=== PATIENT | male | born 1930 | race African-American/Black ===

== ENCOUNTER 2018-03-05 02:16 | Observation (INO) ==
[2018-03-04 22:45] LABS: BASO# 0.02 X1000 (0.0-0.2); BASO% 0.3 % (0.0-0.8); EOS# 0.45 X1000 (0.0-0.7); EOS% 5.8 % (0.0-10.0); HEMATOCRIT 42.1 % (42.0-52.0); HEMOGLOBIN 13.3 g/dL (14.0-18.0); LYMPH# 2.37 X1000 (1.2-3.4); LYMPH% 30.7 % (20.5-51.1); MCH 28.4 PG (27-31); MCHC 31.6 g/dL (33-37); MCV 89.8 FL (81-99); MONO# 1.42 X1000 (0.11-0.59); MONO% 18.4 % (1.7-9.3); NEUT# 3.47 X1000 (1.4-6.5); NEUT% 44.8 % (42.2-75.2); PLT 156 X1000 (130-400); RBC 4.69 XMIL (4.7-6.1); RDW 18.9 % (11.5-14.5); WBC 7.73 X1000 (4.8-10.8)
[2018-03-04 23:08] LABS: AGAP 13; ALBUMIN 3.5 g/dL (3.5-5.0); ALKALINE PHOSPHATASE 60 U/L (32-122); BUN 15 mg/dL (8-22); CHLORIDE 106 mmol/L (98-107); COSMO 286; CREATININE 0.8 mg/dL (0.7-1.2); ESTIMATED GFR > 60; GLUCOSE 106 mg/dL (70-104); GOT 29 U/L (10-34); GPT 17 U/L (10-44); POTASSIUM 3.8 mmol/L (3.5-5.1); SODIUM 143 mmol/L (136-145); TCO2 24 mmol/L (25-35); TOTAL BILIRUBIN 0.45 mg/dL (0.20-1.00); TOTAL PROTEIN 6.9 g/dL (6.3-8.3)
--- NOTE | 2018-03-04 23:50 | PROVIDER DOCUMENTATION ---
HPI-General Adult - General Chief Complaint: Neck Pain Stated Complaint: STABBING PAINS RIGHT SIDE OF HEAD / FACE Time Seen by Provider: 03/04/18 20:44 Source: family Allergies/Adverse Reactions: Patient Allergies Allergy/AdvReac Type Severity Reaction Status Date / Time No Known Allergies Allergy Verified 03/04/18 22:00 Home Medications: Home Medication List Medication Instructions Recorded Confirmed Last Taken Type Potassium Chloride 10 meq PO DAILY 05/03/17 03/04/18 03/04/18 History Albuterol 2.5MG/Ipratrop 0.5MG 3 ml INH RTQ6H #120 neb 05/06/17 03/04/18 Rx [Duoneb (A & A)] Metoprolol [Lopressor] 50 mg PO BID 05/20/17 03/04/18 03/04/18 History Tiotropium Ramer Inhaler 1 puff INH RTDAILY 06/02/17 03/04/18 03/04/18 History [Spiriva] Apixaban [Eliquis] 2.5 mg PO BID 10 Days #20 tab NS 12/02/17 03/04/18 03/04/18 Rx Furosemide [Lasix] 40 mg PO DAILY #30 tab 12/11/17 03/04/18 03/04/18 Rx Atorvastatin Calcium [Lipitor] 20 mg PO DAILY 01/10/18 03/04/18 03/04/18 History Albuterol Sulfate Inhaler 2 puff INH Q6H PRN #1 inhaler 01/17/18 03/04/18 Unknown Rx [Ventolin Hfa] Amlodipine Besylate 10 mg PO DAILY 01/28/18 03/04/18 03/04/18 History Losartan Potassium 50 mg PO DAILY 01/28/18 03/04/18 03/04/18 History Digoxin [Lanoxin] 125 microgm PO DAILY #90 tab 01/31/18 03/04/18 03/04/18 Rx Ranolazine E.r. [Ranexa] 500 mg PO BID #60 tab 01/31/18 03/04/18 03/04/18 Rx Spironolactone [Aldactone] 25 mg PO DAILY #90 tab 01/31/18 03/04/18 03/04/18 Rx Tramadol/APAP [Ultracet 1 ea PO Q8H PRN PRN #30 tab 01/31/18 03/04/18 03/04/18 Rx 37.5MG/325Mg] - History of Present Illness -Gen Adult Nature of Presenting Problems: HPI: Pt reprost to ED with severe headache, weakness, SOB/Cough/wheezing and Right shoulder pain. He has an extensive PMH and was recently discharged from hospital for COPD exacerbation. Pt is having cough, and SOB, wheezing and has productive cough. He states he has wekaness, has difficulty walking, cannot get out of bed. He also complains of headache Location of Pain/Injury: reports: head Pain Radiation: reports: shoulder(s) Quality of Pain: reports: aching Severity: reports: moderate Onset/Duration: reports: other (3 weeks) Timing: reports: still present Context/Activities at Onset: reports: light activity Modifying Factors: improves with: nothing Associated Symptoms: reports: back/neck pain, cough, fatigue, headaches, loss of appetite, malaise, shortness of breath, weakness Similar Symptoms Previously?: Yes Recently seen or treated by another doctor?: Yes Review of Systems - Adult - REVIEW OF SYSTEMS - ADULT Constitutional: reports: no symptoms reported Eyes: reports: no symptoms reported Ears, Nose, Mouth & Throat: reports: no symptoms reported Cardiovascular: reports: no symptoms reported Respiratory: reports: chronic cough, cough, dyspnea on exertion, shortness of breath, wheezing Gastrointestinal: reports: no symptoms reported Genitourinary: reports: no symptoms reported Musculoskeletal: reports: see HPI Integumentary: reports: no symptoms reported Neurological: reports: see HPI Psychiatric: reports: no symptoms reported Endocrine: reports: no symptoms reported Hematologic/Lymphatic: reports: no symptoms reported Allergic/Immunologic: reports: no symptoms reported All Other Systems: Reviewed and Negative Past History - Adult - PAST MEDICAL HISTORY-ADULT Review of Records: reports: Old Records Reviewed, Nursing Assessment Review, Medications Reviewed, Social history reviewed & non-contributory. Major Childhood Illnesses: reports: denies history Cardiovascular: reports: CHF, HTN, hyperlipidemia Respiratory: reports: asthma, COPD, sleep apnea Gastrointestinal: reports: GERD Obstetrical/Gynecological: reports: denies history Genitourinary: reports: denies history Musculoskeletal: reports: other (Mysthenia Gravis) Neurological: reports: denies history Endocrine/Immune: reports: denies history Other Conditions: reports: denies history - PRIOR SURGERIES/PROCEDURES Surgical/Procedure History: reports: cholecystectomy, hernia repair, orthopedic (extremity), joint replacement (total knee) - IMMUNIZATION STATUS Childhood Immunizations: See Nurse Assessment Flu Vaccine: See Nurse Assessment - FAMILY HISTORY Family History: reviewed, not pertinent - SOCIAL HISTORY Smoking: denies Substance Use: none/never Alcohol Use Frequency: never Living Situation: family Physical Exam-General - PHYSICAL EXAM-ADULT Initial Vital Signs Reviewed: Yes - CONSTITUTIONAL General Appearance: mild distress - EYES Eyes: pink conjunctivae - HEAD, EARS, NOSE, MOUTH & THROAT HENMT: moist mucous membranes - NECK Neck: tender lateral - RESPIRATORY Respiratory: decreased breath sounds, rhonchi, wheezing. negative: chest non- tender, lungs clear, normal breath sounds - CARDIOVASCULAR Cardiovascular: normal peripheral pulses, bradycardia. negative: no gallop, no JVD, no murmur - GASTROINTESTINAL (ABDOMEN) Abdominal Exam: normal bowel sounds, non tender, soft, no organomegaly. negative: guarding, rigid, rebound, tenderness - MUSCULOSKELETAL Back Exam: no vertebral tenderness Extremity: non-tender, normal inspection. negative: normal range of motion, normal gait - SKIN Integumentary: normal color, normal turgor, warm/dry - NEUROLOGIC Neurologic: grossly normal - PSYCHIATRIC Psych/Mental Status: negative: normal mood/affect Progress - PLAN OF CARE/RESULTS Progress/Plan/Lab Results: Vital Signs - 8 hr 03/04/18 17:51 03/04/18 20:04 03/04/18 20:19 Temperature 98.2 F Pulse Rate 64 74 Respiratory Rate 18 Blood Pressure 137/76 136/80 125/75 O2 Sat by Pulse Oximetry 97 95 95 03/04/18 20:35 03/04/18 20:50 03/04/18 21:04 Temperature Pulse Rate 65 64 69 Respiratory Rate Blood Pressure 138/62 99/59 134/69 O2 Sat by Pulse Oximetry 94 L 93 L 93 L 03/04/18 21:05 03/04/18 21:30 03/04/18 22:00 Temperature Pulse Rate 71 55 L Respiratory Rate 16 24 Blood Pressure O2 Sat by Pulse Oximetry 92 L 94 L 94 L 03/04/18 22:30 Temperature Pulse Rate 73 Respiratory Rate 33 H Blood Pressure O2 Sat by Pulse Oximetry 93 L Laboratory Results - last 24 hr 03/04/18 03/04/18 21:20 21:20 WBC 7.73 RBC 4.69 L Hgb 13.3 L Hct 42.1 MCV 89.8 MCH 28.4 MCHC 31.6 L RDW Std Deviation 18.9 H Plt Count 156 MPV 11.0 H Neut % (Auto) 44.8 Lymph % (Auto) 30.7 [place] % (Auto) 18.4 H Eos % (Auto) 5.8 Baso % (Auto) 0.3 Neut # (Auto) 3.47 Lymph # (Auto) 2.37 [place] # (Auto) 1.42 H Eos # (Auto) 0.45 Baso # (Auto) 0.02 Sodium 143 Potassium 3.8 Chloride 106 Carbon Dioxide 24 L Anion Gap 13 BUN 15 Creatinine 0.8 Estimated GFR/1.73 m2 > 60 BUN/Creatinine Ratio 19 Glucose 106 H Calculated Osmolality 286 Calcium 10.0 Total Bilirubin 0.45 AST 29 ALT 17 Alkaline Phosphatase 60 Total Protein 6.9 Albumin 3.5 Globulin 3.4 Albumin/Globulin Ratio 1.0 Orders Category Date Time Status Saline Loc NOW Care 03/04/18 22:25 Active CERVICAL SPINE COMPLETE [RAD] Stat Exams 03/04/18 22:37 Taken CHEST-2 VIEWS [RAD] Stat Exams 03/04/18 22:37 Taken CBC WITH ELECTRONIC DIFF [HEME] Stat Lab 03/04/18 21:20 Completed COMPREHENSIVE METABOLIC PANEL [CHEM] Stat Lab 03/04/18 21:20 Completed URINALYSIS W/POSS RFLX CULT [URINALYSIS] Stat Lab 03/04/18 22:25 Uncollected 0.9% Sodium Chloride Inj [Ns] 1,000 ml Med 03/04/18 22:25 Discontinued IV 999 mls/hr Ketorolac [Toradol] Med 03/04/18 22:25 Discontinued 30 mg IV NOW ONE Result Diagrams: 03/04/18 21:20 03/04/18 21:20 - XRAY 1 XRAY Study: Chest Impression: Abnormal (possible pulmonary inflitrates) Departure - Departure Date of Disposition Decision: 03/05/18 Time of Disposition Decision: 00:31 DIAGNOSIS: Generalized weakness Disposition: ADMITTED INPATIENT 09 Certified Medical Emergency: Emergent Condition: Fair Additional Freetext Instructions: ED Follow Up Instructions: You have been treated by a care provider in the Emergency Department. These instructions are being provided to you so you can have an understanding of how to care for yourself upon discharge. Upon discharge from the Emergency Department, you are responsible for making arrangements for follow-up care by a physician of your choice. Take all prescribed medications as directed. Return to the Emergency Department immediately for any new or worsening symptoms. You may call the Physician Referral phone number at [phone] to obtain a list of Physicians who are taking new patients. Referrals and Follow-Ups: Chad Oliver [Primary Care Provider] - - Critical Care Note This patient required my direct & personal management of CC.: No Attestation - Physician/ HAYDEE Attestation Patient care was provided by Advanced Practice Provider:: No The physician spent face to face time with patient:: Yes Advanced Practice Provider documentation review:: Supervising physician onsite and consulted in the evaluation and care of this patient. The physician did have a face to face encounter with the patient.
[~2018-03-05 02:16] MED LIST: NICODERM PATCH TD ONE; NS 1,000 ML IV ONE; TORADOL IV ONE; ULTRAM PO ONE
[2018-03-05 02:55] LABS: MAGNESIUM 1.8 mg/dL (1.5-2.7)
[2018-03-05 03:03] LABS: INR 1.03; PROTIME 14.3 Seconds (11.0-16.0)
[2018-03-05 03:21] LABS: BILIRUBIN URINE NEGATIVE (NEGATIVE); BLOOD URINE NEGATIVE (NEGATIVE); COLOR YELLOW; GLUCOSE URINE NEGATIVE (NEGATIVE); KETONE URINE NEGATIVE (NEGATIVE); LEUKOCYTES URINE NEGATIVE (NEGATIVE); NITRITE URINE NEGATIVE (NEGATIVE); PH URINE 6.5; PROTEIN URINE NEGATIVE (NEGATIVE); SP GRAVITY URINE 1.022; TURBIDITY URINE CLEAR (CLEAR); UR EPITHELIAL CELLS <10 /HPF (<10); URINE BACTERIA NEGATIVE /HPF; URINE RBC <10 /HPF (<10); URINE SOURCE CLEAN CATCH; URINE WBC <10 /HPF (<10); UROBILINOGEN URINE 2 mg/dL (NORMAL)
[2018-03-05 03:23] LABS: CK INDEX 1.3 (0.0-2.5); CK-MB 4.65 ng/mL (0.0-5.0)
--- NOTE | 2018-03-05 07:18 | Diag Imaging Result Doc PS360 ---
EXAM: CT HEAD W/O CONTRAST INDICATION: headache TECHNIQUE: This exam was performed using automated exposure control, adjustment of mA or kV according to patient size, and/or use of iterative reconstruction technique. COMPARISON: 01/10/2018 FINDINGS: There is stable mild brain atrophy and stable patchy low attenuation in the periventricular and subcortical white matter suggesting mild to moderate microangiopathy. There is no definite acute infarct given the limited sensitivity of CT versus MRI. There is no discrete intracranial mass, mass effect, or intracranial hemorrhage. The surrounding soft tissues and bony structures are essentially unremarkable. IMPRESSION: Stable chronic changes. No definite acute intracranial pathology. Electronically signed by Artem Taylor 03/05/2018 7:16 AM
--- NOTE | 2018-03-05 07:26 | Diag Imaging Result Doc PS360 ---
EXAM: CHEST-2 VIEWS 03/04/2018 HISTORY: headache TECHNIQUE: PA and lateral chest COMMENT: There is interstitial opacity particularly in the left costophrenic angle. The heart size and pulmonary vascularity appear to be within normal limits. IMPRESSION: Mild interstitial pulmonary edema. Electronically signed by Torey Raymond 03/05/2018 7:24 AM
--- NOTE | 2018-03-05 07:39 | Diag Imaging Result Doc PS360 ---
EXAM: CERVICAL SPINE COMPLETE 03/04/2018 HISTORY: neck pain TECHNIQUE: Cervical spine with obliques six views COMMENT: There is disc space narrowing with anterior osteophyte formation at the C3-4, C4-5, and C5-C6 levels. There is posterior osteophyte formation and ankylosis at the C6-7 level. No prevertebral soft tissue swelling is present. There is some mild osteophytic encroachment on the intervertebral foramina at C4-5 and C5-6 on the right. Compared to the previous study of 10/11/2017 there has been no significant change. IMPRESSION: Degenerative disc changes as described. Electronically signed by Torey Raymond 03/05/2018 7:37 AM
[2018-03-05] MEDS ORDERED: ZOFRAN IV PRN (07:50)
--- NOTE | 2018-03-05 08:21 | Diag Imaging Result Doc PS360 ---
EXAM: CT NECK W/CONTRAST INDICATION: Right Head/Neck Pain TECHNIQUE: This exam was performed using automated exposure control, adjustment of mA or kV according to patient size, and/or use of iterative reconstruction technique. COMPARISON: Unenhanced cervical spine CT dated 05/03/2017. No dedicated soft tissue neck CT is available for comparison. FINDINGS: The salivary glands and thyroid are grossly unremarkable. There is no evidence of significant cervical lymphadenopathy. The extranodal lymphoid tissue is grossly unremarkable. There is some asymmetry at the level of the valleculae with the left vallecula larger than the right. However, no underlying mass is identified. The aerodigestive tract is grossly unremarkable, otherwise. There is no evidence of soft tissue abscess. There is pulmonary emphysema. There is a small nodular density in the right upper lobe that can also be seen on a prior dedicated chest CT dated 01/29/2018. IMPRESSION: 1.No evidence of abscess or other definite acute pathology. 2.Other external/nonacute findings detailed above. Electronically signed by Artem Taylor 03/05/2018 8:19 AM
[2018-03-05 08:56] LABS: BASO# 0.03 X1000 (0.0-0.2); BASO% 0.5 % (0.0-0.8); EOS# 0.35 X1000 (0.0-0.7); EOS% 5.4 % (0.0-10.0); HEMATOCRIT 42.6 % (42.0-52.0); HEMOGLOBIN 13.3 g/dL (14.0-18.0); IMM GRAN# 0.03 X1000 (0.0-0.04); IMM GRAN% 0.5 % (0.0-0.5); LYMPH# 2.31 X1000 (1.2-3.4); LYMPH% 35.4 % (20.5-51.1); MCH 28.1 PG (27-31); MCHC 31.2 g/dL (33-37); MCV 90.1 FL (81-99); MONO# 0.78 X1000 (0.11-0.59); MONO% 11.9 % (1.7-9.3); MPV 10.1 FL (7.4-10.4); NEUT# 3.03 X1000 (1.4-6.5); NEUT% 46.3 % (42.2-75.2); PLT 145 X1000 (130-400); RBC 4.73 XMIL (4.7-6.1); RDW 18.8 % (11.5-14.5); WBC 6.53 X1000 (4.8-10.8)
[2018-03-05] MEDS ORDERED: RANEXA PO SCH (09:00)
--- NOTE | 2018-03-05 09:01 | EKG Report ---
Test Performed on : 03/05/2018 08:35:10 AM Test Reason : ABNORNAL HEART RHYTHEM Blood Pressure : / mmHG Vent. Rate : 063 BPM Atrial Rate : 063 BPM P-R Int : 178 ms QRS Dur : 112 ms QT Int : 388 ms P-R-T Axes : 050 -05 -85 degrees QTc Int : 397 ms Normal sinus rhythm. Septal infarct (cited on or before 17-NOV-2017) ST & T wave abnormality, consider inferior ischemia Abnormal ECG When compared with ECG of 05-MAR-2018 08:34, (Unconfirmed) premature ventricular complexes. are no longer present premature atrial complexes. are no longer present Nonspecific T wave abnormality no longer evident in Anterior leads Confirmed by Vijay BETTENCOURT, Chris Martinez ([id number]) on 03/05/2018 9:45:22 AM
--- NOTE | 2018-03-05 09:06 | EKG Report ---
Test Performed on : 03/04/2018 9:49:30 PM Test Reason : NO EKG ORDER FOR MUSE Blood Pressure : / mmHG Vent. Rate : 055 BPM Atrial Rate : 055 BPM P-R Int : 176 ms QRS Dur : 114 ms QT Int : 426 ms P-R-T Axes : 036 -36 -85 degrees QTc Int : 407 ms Sinus bradycardia. with premature supraventricular complexes. and with occasional premature ventricul ar complexes. Left axis deviation Septal infarct (cited on or before 17-NOV-2017) ST & T wave abnormality, consider inferior ischemia ST & T wave abnormality, consider anterolateral ischemia Abnormal ECG When compared with ECG of 28-JAN-2018 18:49, Significant changes have occurred Unconfirmed Result
[2018-03-05 09:10] LABS: AGAP 10; BUN 10 mg/dL (8-22); CALCIUM 8.7 mg/dL (8.8-10.2); CHLORIDE 104 mmol/L (98-107); COSMO 276; CREATININE 0.7 mg/dL (0.7-1.2); ESTIMATED GFR > 60; GLUCOSE 115 mg/dL (70-104); MAGNESIUM 1.7 mg/dL (1.5-2.7); POTASSIUM 4.1 mmol/L (3.5-5.1); SODIUM 138 mmol/L (136-145); TCO2 24 mmol/L (25-35)
[2018-03-05 09:37] LABS: CK INDEX 1.6 (0.0-2.5); CK-MB 3.92 ng/mL (0.0-5.0)
[2018-03-05] MEDS: DUONEB (A & A) INH SCH ×3 (10:19→18:59)
[2018-03-05] MEDS: SPIRIVA INH SCH (10:19)
[2018-03-05] MEDS: ULTRACET 37.5MG/325MG PO PRN (11:36)
[2018-03-05] MEDS: LIPITOR PO SCH (11:42)
[2018-03-05] MEDS: LASIX PO SCH (11:42)
[2018-03-05] MEDS: ELIQUIS PO SCH ×2 (11:43→21:30)
[2018-03-05] MEDS: NORVASC PO SCH (11:43)
[2018-03-05] MEDS: COZAAR PO SCH (11:43)
[2018-03-05] MEDS: ALDACTONE PO SCH (11:43)
[2018-03-05] MEDS: ROCEPHIN 1 GM in NS 50 ML IV SCH (12:00)
[2018-03-05] MEDS ORDERED: LASIX IV ONE (13:32)
[2018-03-05] MEDS: LOPRESSOR PO SCH ×2 (16:59→21:30)
--- NOTE | 2018-03-05 17:31 | CONSULTATION ---
DATE OF CONSULTATION: 03/05/2018 IMPRESSION: 1. Episode of polymorphic ventricular tachycardia observed while patient on telemetry. I suspect this may very well have been precipitated by congestive heart failure and missed dosing of beta vin for 24 hours in patient with severe coronary disease and ischemic cardiomyopathy. 2. Severe coronary atherosclerosis. Last cardiac catheterization study in 2014 indicated 100% occlusion of left circumflex coronary artery, diffuse irregularities and right coronary, and diffuse irregularities in left anterior descending coronary. Medical management was recommended. At that time left ventricular ejection fraction was 55 to 60 percent. 3. Ischemic cardiomyopathy. Echocardiography most recently, has indicated left ejection fraction of 30%. 4. Chief complaint of right neck and right side of his head discomfort which is aggravated by turning his head. 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 5. Chronic obstructive pulmonary disease. Reportedly significant. 6. Hyperlipidemia. 7. Previous episode of atrial fibrillation./paroxysmal atrial fibrillation. 8. Hypertension. RECOMMENDATIONS: 1. Diurese with intravenous Lasix. 2. Resume metoprolol. 3. Patient has chosen to be do not resuscitate in the past. The implications of his ischemic cardiomyopathy and ventricular arrhythmias were discussed with the patient's family. He is given it further consideration but has not changed his mind from being a do not resuscitate. 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 His pain is aggravated by turning of his head to the right. This is a somewhat chronic symptom. He has not had any chest pain. 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 He has significant problems and having pain in his neck when he turns his head to the right. Apparently had seen one of the neurosurgeons in [place] and was turned down for surgical repair presumably because of his cardiac issues. He has had some paroxysmal atrial fibrillation in the past as well as some episodes of nonsustained ventricular tachycardia. He has been evaluated by the electrophysiology service and has not desired resuscitative measures in the event of cardiac arrest and shows to be a DNR. PAST MEDICAL HISTORY: 1. Severe coronary disease. 2. Ischemic cardiomyopathy. 3. COPD, significant. 4. Hypertension. 5. Hyperlipidemia. 6. 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 7. Paroxysmal atrial fibrillation. 8. Nonsustained ventricular arrhythmias in the past. PAST SURGICAL HISTORY: Unspecified back surgery, rotator cuff surgery, and release of ulnar surgery. ALLERGIES: No known drug allergies. MEDICATIONS PRIOR TO ADMISSION: As listed. It is noteworthy that his last dose metoprolol was yesterday morning and he has yet to received another dose. He takes metoprolol 50 mg p.o. b.i.d. in addition to his other medications. SOCIAL HISTORY: He has history of previous smoking, but no longer smokes. He continues to work despite of his age and medical issues. FAMILY HISTORY: Negative for premature coronary disease. REVIEW OF SYSTEMS: Pulmonary: Noteworthy for chronic tendency for orthopnea as well as some exertional shortness of breath. Gastrointestinal: Negative. Constitutional: Negative. Remainder of review of systems negative/noncontributory with 14 total systems reviewed. PHYSICAL EXAMINATION: General: This is a elderly male in no distress. Vital signs: Blood pressure 145/72, heart rate 75, oxygen saturation 99% on nasal cannula oxygen. HEENT: Extraocular movements intact. Mucous membranes moist. Neck: Supple. Jugular venous distention cannot be discerned. Chest: Clear to auscultation bilaterally. Cardiac: Reveals a regular rate and rhythm without appreciable murmur or gallop. Abdomen: Soft, nontender. Bowel sounds are normal. Extremities: Without edema. Extensive wasting evident in the musculature of both hands. PERTINENT DATA: Twelve lead EKG demonstrates sinus rhythm. Cannot rule out septal infarct of undetermined age and ST and T-wave abnormality, consider inferior ischemia. LABORATORY DATA: Includes a white blood cell count of 6.5,3 hematocrit 42.6, hemoglobin 13.3, platelet count 145,000. Sodium 138, potassium 4.1, chloride 104, carbon dioxide 24, BUN 10, creatinine 0.7, glucose 115, initial troponin less than 0.01. Followup troponin less 0.01. Initial CPK 370, followup CPK 242. Pro B natriuretic peptide level 2568. Chest x-ray on admission reviewed and suggests mild interstitial pulmonary edema. cc: MD René Solorzano MD
[2018-03-05] MEDS: ROBAXIN PO SCH (21:30)
[2018-03-05] MEDS: NORCO-7.5 PO PRN (23:20)
[2018-03-06] MEDS: DUONEB (A & A) INH SCH ×6 (01:56→21:10)
[2018-03-06 05:25] LABS: BASO# 0.03 X1000 (0.0-0.2); BASO% 0.4 % (0.0-0.8); EOS# 0.56 X1000 (0.0-0.7); EOS% 7.4 % (0.0-10.0); HEMATOCRIT 44.7 % (42.0-52.0); HEMOGLOBIN 14.2 g/dL (14.0-18.0); IMM GRAN# 0.05 X1000 (0.0-0.04); IMM GRAN% 0.7 % (0.0-0.5); LYMPH# 1.89 X1000 (1.2-3.4); LYMPH% 24.8 % (20.5-51.1); MCHC 31.8 g/dL (33-37); MCV 88.2 FL (81-99); MONO# 1.24 X1000 (0.11-0.59); MONO% 16.3 % (1.7-9.3); MPV 9.8 FL (7.4-10.4); NEUT# 3.84 X1000 (1.4-6.5); NEUT% 50.4 % (42.2-75.2); PLT 155 X1000 (130-400); RBC 5.07 XMIL (4.7-6.1); RDW 18.7 % (11.5-14.5); WBC 7.61 X1000 (4.8-10.8)
[2018-03-06 06:08] LABS: BUN 13 mg/dL (8-22); ESTIMATED GFR > 60; GLUCOSE 97 mg/dL (70-104); MAGNESIUM 1.6 mg/dL (1.5-2.7)
[2018-03-06 06:26] LABS: AGAP 14; CALCIUM 8.9 mg/dL (8.8-10.2); CHLORIDE 99 mmol/L (98-107); COSMO 272; POTASSIUM 3.9 mmol/L (3.5-5.1); SODIUM 136 mmol/L (136-145); TCO2 23 mmol/L (25-35)
--- NOTE | 2018-03-06 07:18 | HISTORY AND PHYSICAL ---
PRIMARY CARE PROVIDER: Dr. Ankit Orona. CHIEF COMPLAINT: Neck pain. HISTORY OF PRESENT ILLNESS: Mr. Patel is an 87-year-old, -Nepalese male with a past medical history most notable for congestive heart failure, COPD, hypertension, hyperlipidemia and atrial fibrillation on anticoagulation with Eliquis. Mr. Patel states that he has been having a right-sided head, face, neck and right shoulder pain. He reports this pain is sharp in nature and it is approximately 10/10. He states it starts at the top of his head and radiates downward to his right shoulder. The patient states this has been ongoing for several weeks. He does report that he has difficulty turning his head to the right and has to essentially turn his whole upper body to look to the right. 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 After speaking with the patient, he does state that he has been going to see a physician in [place] who has possibly doing steroid injections in his neck/jaw area. He stated he had one of these possibly [id number]. Though at this time I am unsure of what imaging studies they have done to evaluate his pain that he is reporting. He also reports that he has had an occasional productive cough with some white thick sputum though the patient states that this cough has been present for quite some time and has not worsened. He does report occasional shortness of breath, though at this time he is denying shortness of breath or chest pain. He does report he has felt a little more weak than normal and he has had a decreased appetite. He denies any abdominal pain, nausea, vomiting or diarrhea. He denies any dysuria or urinary frequency. He denies any swelling in extremities. He also denies any fevers, body aches or chills. Upon evaluation in the ER, he was noted to be complaining of symptoms as above. They did perform studies of head CT negative for any acute intracranial abnormalities. Chest x-ray did show some mild interstitial pulmonary edema. EKG did show a sinus bradycardia with premature supraventricular complexes and occasional premature ventral complexes of the left axis deviation. Looking back, the patient has not previously had any problems with bradycardia though he does have a history of paroxysmal atrial fibrillation. In the ER, as well as during my examination, the patient was ranging in the 50s to 60s on his heart rate. Though his blood pressure is within normal limits with readings of 152/82. Oxygen saturation is 96% on room air. We did perform further studies of a neck CT with contrast for further evaluation of his reported pain symptoms. There was no evidence of abscess or other definite acute pathologies. At this time, the patient will be admitted for further treatment and evaluation of his weakness and right-sided head, face, neck and shoulder pain. REVIEW OF SYSTEMS: A 14 point review of systems was conducted with the patient and all were negative except for pertinent positives mentioned above in HPI. PAST MEDICAL HISTORY: 1. Congestive heart failure with last known ejection fraction of 50%. 2. COPD. 3. Gastroesophageal reflux disease. 4. Hyperlipidemia. 5. Hypertension. 6. Paroxysmal atrial fibrillation on anticoagulation with Eliquis. 7. There was a questionable history of myasthenia gravis that was mentioned in previous history and physical in November 2017. PAST SURGICAL HISTORY: 1. Right shoulder rotator cuff repair. 2. Left knee arthroplasty. 3. Cholecystectomy. 4. Left elbow surgery. 5. Back surgery. SOCIAL HISTORY: The patient is a former smoker. He quit smoking [id number]. At this time, he states he has not started smoking again. He has no known alcohol or illicit drug use history. 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 FAMILY HISTORY: Positive for his mother and father both being . His mother lived to age 75, though the patient was not sure either his mother or father's cause of . ALLERGIES: The patient has no known allergies. HOME MEDICATIONS: 1. DuoNeb treatment 3 mm inhaled q.6 hours. 2. Ventolin HFA inhaler 2 puffs inhaled q.6 hours p.r.n. 3. Amlodipine 10 mg p.o. daily. 4. Eliquis 2.5 mg p.o. b.i.d. 5. Lipitor 20 mg p.o. daily. 6. Digoxin 125 mcg p.o. daily. 7. Lasix 40 mg p.o. daily. 8. Losartan potassium 50 mg p.o. daily. 9. Lopressor 50 mg p.o. b.i.d. 10.Potassium chloride 10 mEq p.o. daily. 11.Ranexa 500 mg p.o. daily. 12.Aldactone 25 mg p.o. daily. 13.Spiriva one puff inhaled daily. 14.Ultracet 37.5 mg/325 mg tablet on p.o. q.8 hours p.r.n. pain. DIAGNOSTIC DATA/LABORATORY RESULTS: 1. White blood cell count 7730, hemoglobin 13.3, hematocrit 42.1, platelet count 156,000. 2. PT 14.3, INR 1.03, PTT is 29.7. 3. Sodium 143, potassium 3.8, chloride 106, serum bicarb 24, BUN 15, creatinine 0.8 with a GFR greater than 60, glucose 106, calcium 10, magnesium 1.8. 4. Liver function tests are within normal limits. 5. CK 370, CK index 1.3, CK MB is 4.65. Troponin less than 0.01. 6. Digoxin level is 1.1. 7. Urinalysis obtained via clean catch was negative for protein, glucose, ketones, blood, nitrites, leukocytosis, white blood cells or bacteria. 8. Chest x-ray did show some mild interstitial pulmonary edema. 9. CT of the head noncontrast showed stable chronic changes, though no definite acute intracranial pathology. 10.CT of neck without contrast showed no evidence of abscess or other definite acute pathology. There was also some pulmonary emphysema noted. There was also a small nodular density at the right upper lobe that can also be seen on prior dedicated chest CT from January 2018. PHYSICAL EXAMINATION: VITAL SIGNS: Temperature 97.8 degrees Fahrenheit, heart rate 60, respirations 22, blood pressure 152/82. Oxygen saturation is 96% on room air. GENERAL: Mr. Patel is a pleasant 87-year-old, -N[place]alese male, who was resting on the inpatient bed. He was in no acute distress. He was awake, alert, and able to answers questions appropriately. The patient had noted to be earlier in the ER alert and oriented to person, place and time - though was documented to be lethargic though I have not witnessed this upon my examination. HEENT: Head: Normocephalic and atraumatic. Eyes: Pupils are equal, round and reactive to light, 3 mm bilaterally and brisk. ENT: Oral mucosa is moist. Oropharynx is clear. NECK: Supple. Trachea is midline. There is no overt JVD noted. CARDIOVASCULAR: The patient has S1, S2 present. There were no murmur, gallop, or rub appreciated. PULMONARY: The patient has symmetrical chest expansion bilaterally. Lung sounds are clear to auscultation in bilateral full spring. ABDOMEN: Soft, nontender, nondistended. Bowel sounds are present in all four quadrants were normoactive. EXTREMITIES: No cyanosis, clubbing or edema noted. Pulse, motor and sensory were intact in all extremities. Pedal pulses and radial pulses were 2+ bilaterally. INTEGUMENTARY: The patient's skin color is normal for his race. Dry and intact. MUSCULOSKELETAL: Patient able to move all extremities. He does appear to have some decrease in range of motion when turning his head and neck to the right. He also does have some tenderness at the angle of the jaw on the right, though there was no palpable nodules, hematoma or masses upon my examination. NEUROLOGIC: The patient is alert and oriented to person, place, time and situation. There did not appear to be any focal neurological deficits noted. The patient does appear to have good muscle strength bilaterally, though he is reporting that he is weaker than his usual. IMPRESSION AND PLAN: 1. Weakness. The patient does have good equal hand grasp bilaterally, as well as fairly good muscle strength - though he does report that he has been having some weakness that is worsened from his baseline. For further evaluation of this we have place a physical therapy evaluation. We will continue to monitor closely. We will go ahead and continue with a series of cardiac enzymes. We will repeat CBC and BMP and magnesium in the morning. 2. Also, the patient was noted to be slightly bradycardiac in the ER with a heart rate that was in the 50s and low 60s. He does take medications of metoprolol and digoxin. I am no sure if he is maybe having some periods of bradycardia and this may be causing him to feel more weak than normal. Given this we will place him on continuous cardiac telemetry. We will continue to monitor this closely, though I will hold his digoxin and metoprolol this morning. We will continue to follow and monitor his heart rate. 3. History of congestive heart failure. Though the patient was noted to have some mild interstitial pulmonary edema on his chest x-ray, his lung sounds were clear to auscultation bilaterally. He has no JVD noted. He has no edema in his extremities. He does not appear to be in overload at this time. Given this we will go ahead and continue his regularly prescribed medications for this. As well, he does receive Lasix 40 mg p.o. daily. 4. History of paroxysmal atrial fibrillation. As previously mentioned in #1, the patient was having some periods of some mild bradycardia in the 50s and low 60s, though he is reporting new onset of some weakness. I am not sure if this is contributing to this. Given this we are going to place him on continuous cardiac telemetry. As previously mentioned, watch his heart rate. We will hold his digoxin and metoprolol for this morning to see how his heart rate does. 5. Right head, face, neck and shoulder pain. Though his CT of head and CT of the neck did not show any acute findings to possibly explain his pain that he is reporting, he did state that he had previously seen a physician in [facility] who had possibly performed what sounds like may have been some steroid injections in his neck. He stated that he was supposed to follow up with them but does not have an appointment at this time. We are also not sure of any imaging studies that may have been done. The patient's primary care doctor is Dr. Orona. He may have this documentation as well as imaging studies available for his viewing. We will defer this to him given that he will be taking back over his care this morning. We have placed orders for Ultracet for pain if needed. 6. Hypertension. We will continue his other prescribed antihypertensives. 7. Hyperlipidemia. We will continue his statin. 8. Chronic obstructive pulmonary disease. We will continue his earlier prescribed DuoNeb treatments and his Spiriva. 9. Deep venous thrombosis prophylaxis. He will be provided with the patient's Eliquis which he takes for anticoagulation related to his paroxysmal atrial fibrillation. The patient has been placed on the medical floor with telemetry. He will have vital signs q.4 hours. We will do strict intake and output. Incentive spirometry. Her will be on a Heart Healthy diet. We will repeat his labs later this morning, and we will do a series of cardiac enzymes. Further orders and recommendations pending hospital course, diagnostic studies, and physician evaluation. Dictated by CARRILLO Ewing for Kirk Smith MD cc: MD Kirk Negro MD
[2018-03-06] MEDS: NORVASC PO SCH (07:59)
[2018-03-06] MEDS: ROBAXIN PO SCH ×2 (07:59→20:00)
[2018-03-06] MEDS: LOPRESSOR PO SCH ×2 (07:59→20:00)
[2018-03-06] MEDS: ALDACTONE PO SCH (07:59)
[2018-03-06] MEDS: LASIX PO SCH (07:59)
[2018-03-06] MEDS: LIPITOR PO SCH (07:59)
[2018-03-06] MEDS: COZAAR PO SCH (07:59)
[2018-03-06] MEDS: ELIQUIS PO SCH ×2 (07:59→20:00)
[2018-03-06] MEDS: SPIRIVA INH SCH (10:33)
[2018-03-06] MEDS: ROCEPHIN 1 GM in NS 50 ML IV SCH (11:35)
--- NOTE | 2018-03-06 12:12 | PROGRESS NOTE ---
DATE: 03/06/2018 SUBJECTIVE: Patient continues without shortness of breath on room air. There has been no chest pain. He relates that his neck pain is improving. OBJECTIVE: Vital Signs: Blood pressure 107/69, heart rate 70 and regular with ECG monitor showing consistent sinus rhythm. Oxygen saturation 94% on room air to 97% on room air. Neck: There is no significant jugular venous distention. Chest: Clear to auscultation. Cardiac Examination: Reveals a regular rate and rhythm without appreciable murmur or gallop. Extremities: Without edema. Laboratory Data: Includes white blood cell count 7.61, hematocrit 44.7, hemoglobin 14.2, platelet count 155,000. Sodium 136, potassium 3.9, chloride 99, carbon dioxide 23, BUN 13, creatinine 1.0, glucose 97. Troponin 0.013, CPK 166. Digoxin 1.1 on March 04. IMPRESSION: 1. Transient ventricular arrhythmia in the setting of exacerbation of congestive heart failure and interruption of metoprolol. Patient appears to have improved clinically with diuresis and resumption of beta-vin, metoprolol. 2. Severe coronary atherosclerosis. 3. Ischemic cardiomyopathy with most recent left ventricular ejection fraction of 30%. 4. Chronic neck and right-sided head discomfort aggravated by turning of the head. 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 5. Severe chronic obstructive pulmonary disease. 6. Hyperlipidemia. 7. Previous episode of atrial fibrillation/paroxysmal atrial fibrillation. 8. Hypertension. RECOMMENDATIONS: 1. Continue Lasix orally. 2. Continue metoprolol. 3. Would not resume digoxin and would not resume Ranexa. 4. Would observe patient on telemetry. 5. Encourage ambulation for another 24 hours before considering discharge from a cardiovascular standpoint. cc: MD René Solorzano MD
[2018-03-06] MEDS: ULTRACET 37.5MG/325MG PO PRN ×2 (12:59→20:00)
--- NOTE | 2018-03-06 13:05 | PROGRESS NOTE ---
DATE: 03/06/2017 SUBJECTIVE: This is an 87-year-old gentleman admitted with right-sided head, face, neck, and shoulder pain. The pain was moderate to severe in intensity. More pain with movement of the head. Pain was going to the right shoulder. Pain was going on for a few weeks. The patient also had a cough, chest congestion, some weakness, poor appetite. The patient is a vague and poor historian. PAST MEDICAL HISTORY: Significant for CHF, COPD, gastroesophageal reflux disease, hyperlipidemia, hypertension, paroxysmal atrial fibrillation. PAST SURGICAL HISTORY: Noted. OBJECTIVE: Vital signs: Blood pressure 107/69, pulse 70, respirations 16, temperature 98.2 degrees. Skin: Senile turgor. Neck: Supple. No JVD. Lungs: Bilateral good air entry present. Occasional wheezing. CVS: S1 and S2 heard. Abdomen: Soft, globular. Bowel sounds present. Extremities: No cyanosis, clubbing. No acute DVT. 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 Able to move all 4 limbs. LABORATORY DATA: Hemoglobin 14.2, hematocrit 44.7, WBC count 7.61, platelet count 155,000. Electrolytes were fairly benign. ASSESSMENT: The patient's problems include: 1. The patient had an episode of transient ventricular arrhythmia. 2. Congestive heart failure. 3. Severe coronary artery disease. The patient was told he is not a candidate for surgical intervention. 4. Ischemic cardiomyopathy. 5. Chronic neck pain. 6. Chronic obstructive pulmonary disease. 7. Hyperlipidemia. 8. Paroxysmal atrial fibrillation. 9. Hypertension. PLAN: The patient is on anticoagulation, beta vin, muscle relaxer, bronchodilator treatment, and also pain medication which will continue. Overall plan discussed with patient and . They are in agreement. Supervisor Engraving following patient with us. cc: MD René Mark MD
[2018-03-07] MEDS: DUONEB (A & A) INH SCH ×4 (03:35→21:30)
[2018-03-07] MEDS ORDERED: MAGNESIUM SULFATE 1 GM/D5W 1 GM/100 ML IVPB IV ONE (08:02)
--- NOTE | 2018-03-07 08:33 | PROGRESS NOTE ---
DATE: 03/05/2018 Mr. Patel is a 87-year-old gentleman, was admitted last night from the emergency room. He had severe neck pain and severe headache. CT scan of the neck was negative as far as soft tissue workup was concerned. His CT scan was unremarkable. The thyroid and salivary gland were within normal range. Cervical spine x-ray did show some degenerative disk disease and this could be some radicular pain giving rise to muscle spasm from the radiculopathy. He had a fever, which is better. Vital signs are stable. He has COPD, hypertension. I am going to start him on some IV antibiotics. -3 cc: MD René Calle MD
[2018-03-07] MEDS: ALDACTONE PO SCH (09:19)
[2018-03-07] MEDS: NORVASC PO SCH (09:19)
[2018-03-07] MEDS: LOPRESSOR PO SCH ×2 (09:19→20:11)
[2018-03-07] MEDS: ELIQUIS PO SCH ×2 (09:19→20:10)
[2018-03-07] MEDS: LASIX PO SCH (09:19)
[2018-03-07] MEDS: COZAAR PO SCH (09:19)
[2018-03-07] MEDS: LIPITOR PO SCH (09:19)
[2018-03-07] MEDS: ROBAXIN PO SCH ×2 (09:19→20:10)
[2018-03-07] MEDS: SPIRIVA INH SCH (10:44)
[2018-03-07] MEDS: ROCEPHIN 1 GM in NS 50 ML IV SCH (12:28)
[2018-03-07] MEDS: NORCO-7.5 PO PRN (15:11)
[2018-03-07] MEDS: LASIX IV SCH (20:10)
--- NOTE | 2018-03-07 21:08 | PROGRESS NOTE ---
DATE: 03/07/2018 CARDIOLOGY FOLLOWUP NOTE: SUBJECTIVE: Patient denies shortness of breath or chest discomfort on room air. He has not decided on his advance directives. Specifically, he has not decided to rescind his DNR order at this point or to have implantable defibrillator. OBJECTIVE: Vital Signs: Blood pressure 113/48, heart rate 55, oxygen saturation [*]% on room air. Neck: Jugular venous distention, is not significantly elevated. Chest: Auscultation of chest reveals bibasilar inspiratory crackles. Cardiac: Reveals a regular rate and rhythm without appreciable murmur or gallop. Extremities are without edema. LABORATORY DATA: Includes a white blood cell count of 7.61 hematocrit 44.7, hemoglobin 14.2, platelet count 155,000. Sodium 136, potassium 3.9, chloride 99, carbon dioxide 23, BUN 13, creatinine 1.0, glucose 97. IMPRESSION: 1. Acute on chronic systolic heart failure. 2. Transient ventricular arrhythmias in the setting of exacerbation of congestive heart failure and interruption of metoprolol for 24 hours. 3. Severe coronary atherosclerosis. 4. Ischemic cardiomyopathy with left ventricular ejection fraction approximately 30%. 5. Severe COPD. 6. Chronic neck and right-sided head discomfort aggravated by turning of the head. 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 7. Previous atrial fibrillation/paroxysmal atrial fibrillation. 8. Hypertension. RECOMMENDATIONS: 1. Diurese with intravenous Lasix. 2. Continue metoprolol. 3. Supplemental oxygen. 4. Patient remains undecided regarding his advanced directives or whether or not he would desire arrhythmia consultation for possible implantable defibrillator. Certainly, if he decides he would like to go forward with implantable defibrillator arrangements can be made to have an arrhythmia consult to see if this could be pursued. cc: MD René Solorzano MD
--- NOTE | 2018-03-08 01:28 | PROGRESS NOTE ---
DATE: 03/07/2017 SUBJECTIVE: An 87-year-old male admitted to the hospital on 03/06/2018 for nonsustained ventricular tachycardia. The patient complains of right-sided neck pain. Interval history was reviewed. Appreciated Cardiology consult. PHYSICAL EXAMINATION: Vital Signs: Temperature is 97 degrees. Vitals are stable. HEENT: Within normal limits. Chest: Clear. Heart: Sounds are regular. Abdomen: Belly is soft, nontender. Extremities: No edema. LABORATORY DATA: Telemetry strips were noted. CBC: White cell count 7.6, hematocrit 44, platelets 155,000. SMA 7 is normal. Cardiac enzymes were negative. ProBNP 2500. ASSESSMENT AND PLAN: 1. Ischemic cardiomyopathy with nonsustained ventricular tachycardia. We will discuss with Cardiology about AICD placement. 2. Paroxysmal atrial fibrillation on Eliquis. 3. 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 4. Venereal warts, improved. 5. We will check the BMP in the morning and magnesium sulfate was given. 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 Check the QT interval. We will follow up The level of documentation is 25 minutes. cc: René Orona MD
[2018-03-08 06:05] LABS: AGAP 10; BUN 25 mg/dL (8-22); CALCIUM 9.1 mg/dL (8.8-10.2); CHLORIDE 102 mmol/L (98-107); COSMO 282; CREATININE 1.3 mg/dL (0.7-1.2); ESTIMATED GFR > 60; GLUCOSE 92 mg/dL (70-104); POTASSIUM 3.8 mmol/L (3.5-5.1); SODIUM 139 mmol/L (136-145); TCO2 27 mmol/L (25-35)
[2018-03-08] MEDS: DUONEB (A & A) INH SCH ×4 (06:13→21:15)
--- NOTE | 2018-03-08 09:02 | EKG Report ---
Test Performed on : 03/08/2018 07:48:47 AM Test Reason : cp Blood Pressure : / mmHG Vent. Rate : 061 BPM Atrial Rate : 061 BPM P-R Int : 166 ms QRS Dur : 110 ms QT Int : 418 ms P-R-T Axes : 064 -18 241 degrees QTc Int : 420 ms Normal sinus rhythm. Incomplete right bundle branch block Anteroseptal infarct (cited on or before 17-NOV-2017) ST & T wave abnormality, consider inferolateral ischemia Abnormal ECG When compared with ECG of 05-MAR-2018 08:35, Questionable change in initial forces of Anterior leads Confirmed by Jean BETTENCOURT, Mark Hawkins ([id number]) on 03/08/2018 7:29:33 PM
[2018-03-08] MEDS: ELIQUIS PO SCH ×2 (09:24→20:37)
[2018-03-08] MEDS: ALDACTONE PO SCH (09:24)
[2018-03-08] MEDS: LASIX IV SCH (09:24)
[2018-03-08] MEDS: LIPITOR PO SCH (09:24)
[2018-03-08] MEDS: LOPRESSOR PO SCH ×2 (09:24→20:37)
[2018-03-08] MEDS: NORVASC PO SCH (09:24)
[2018-03-08] MEDS: ROBAXIN PO SCH ×2 (09:24→20:37)
[2018-03-08] MEDS: COZAAR PO SCH (09:24)
[2018-03-08] MEDS: SPIRIVA INH SCH (09:50)
[2018-03-08] MEDS: NORCO-7.5 PO PRN (10:44)
[2018-03-08] MEDS: ROCEPHIN 1 GM in NS 50 ML IV SCH (10:44)
--- NOTE | 2018-03-08 14:15 | PROGRESS NOTE ---
DATE: 03/08/2018 CARDIOLOGY FOLLOWUP NOTE SUBJECTIVE: Patient denies shortness of breath or chest discomfort. He continues to report right- sided neck pain, aggravated by movement. OBJECTIVE: Vital Signs: Blood pressure 101/50, heart rate 57, oxygen saturation 99% on room air. Chest is clear to auscultation. Cardiac exam reveals a regular rate and rhythm without appreciable murmur or gallop. Extremities are without edema. LABORATORY DATA: Includes, sodium 139, potassium 3.8, chloride 102, carbon dioxide 27, BUN 25, creatinine 1.3, glucose 92. IMPRESSION: 1. Acute on chronic systolic heart failure. This improved with further diuresis. 2. Transient ventricular arrhythmias in the setting of exacerbation of congestive heart failure and interruption of metoprolol for 24 hours. The patient continues in sinus rhythm. He is reluctant to rescind his Do Not Resuscitate position and reluctant to consider defibrillator, when this was discussed. 3. Severe coronary atherosclerosis. 4. Ischemic cardiomyopathy with left ventricular ejection fraction approximately 30%. 5. Severe chronic obstructive pulmonary disease. 6. 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 7. Previous atrial fibrillation/paroxysmal atrial fibrillation. 8. Hypertension. RECOMMENDATIONS: 1. Transition back to oral Lasix. 2. Continue metoprolol. 3. Unless patient changes his position on resuscitative measures/advanced directives, he would not be considered for implantable defibrillator. He is reluctant to have an implantable defibrillator, when this was discussed. 4. The patient desires to go home this evening as he has an appointment with physician who performs injections on his neck for assistance with inflammation and pain control. It is reasonable from a cardiovascular standpoint for him to be discharged this evening. cc: MD René Solorzano MD
[2018-03-09] MEDS: DUONEB (A & A) INH SCH (03:20)
[2018-03-09] MEDS: ULTRACET 37.5MG/325MG PO PRN (06:32)
--- NOTE | 2018-03-09 07:34 | PROGRESS NOTE ---
DATE: 03/09/[address] Vu Villalobos's comments. He is not a candidate for this ACD. He is still having some PVCs. EKG was done today. He had a normal sinus. T-wave inversions. Q's in V1 and V3, persistent ST-elevation in V1 and V2. QT interval 420 ms. He is anxious to go home tomorrow, 11:00 for the epidural for the neck. EXAM: Vitals: Stable. Physical exam no change. ASSESSMENT AND PLAN: 1. Ischemic cardiomyopathy, recurrent nonsustained ventricular tachycardia. Questionable consider amiodarone. Patient is noncompliant. He is not a candidate for AICD. We will discuss with the patient's family. 2. Paroxysmal atrial fibrillation currently in sinus. 3. QT interval is normal. 4. 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 5. Venereal warts, improving. He is going for epidural steroid in the morning. We will discharge. He is on the blood thinners. I do not know whether they are able to do or not, so he needs to reschedule and will follow up. LEVEL OF DOCUMENTATION: 25 minutes. cc: René Orona MD
[2018-03-09 07:41] VITALS: BP 133/60
[2018-03-09] MEDS ORDERED: LASIX PO SCH (09:00)
[2018-03-09] MEDS: ROBAXIN PO SCH (09:03)
[2018-03-09] MEDS: NORVASC PO SCH (09:03)
[2018-03-09] MEDS: ELIQUIS PO SCH (09:03)
[2018-03-09] MEDS: LIPITOR PO SCH (09:03)
[2018-03-09] MEDS: COZAAR PO SCH (09:03)
[2018-03-09] MEDS: ALDACTONE PO SCH (09:03)
[2018-03-09] MEDS: LOPRESSOR PO SCH (09:03)
--- NOTE | 2018-03-10 23:07 | DISCHARGE SUMMARY ---
ADMISSION DATE: 03/05/2018 DISCHARGE DATE: 03/09/2018 DISCHARGING DIAGNOSIS: Atypical chest pain associated with nonsustained ventricular tachycardia. SECONDARY DIAGNOSIS: 1. 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 2. Ischemic cardiomyopathy with ejection fraction 30%. 3. Chronic obstructive pulmonary disease . 4. Hypertension, hyperlipidemia, acid reflux disease. 5. Paroxysmal atrial fibrillation .stable. CONSULT: Vu Villalobos. BRIEF HISTORY: Please see the H and P that was done by hospitalist. In brief he is an 87-year- old male with above problems came in with neck pain, atypical chest pain. The patient was admitted in telemetry. It showed nonsustained ventricular tachycardia. He also has multiple PVCs. During the hospital course he was given IV magnesium and IV Lasix. Dr. Villalobos recommended AICD. Patient refusing for further intervention. 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 He remains in normal sinus without any PVCs. Followup EKG showed normal QT interval. He will be high risk for sudden cardiac . I did explain to the patient's family. He wants to go home and follow up with the [facility] computer consultant for epidural steroid injections. LABS: CBC. White cell count 7.6, hematocrit 44, platelets 155,000. SMA 7 sodium 139, potassium 3.8, BUN 25, creatinine 1.3, glucose 92. Serial cardiac enzymes were normal. ProBNP 2500. Urinalysis is clear. Digitalis level 1.1. CT neck showed unchanged cervical spine, pulmonary emphysema, unchanged nodular density in the right upper lobe, no evidence of abscess, C- spine spondylosis noted. CT head chronic changes. Chest x-ray mild interstitial edema. C-spine x-ray DJD disk stages. DISCHARGE INSTRUCTIONS: Initiate vaccination protocol. Potassium 10 mEq daily, albuterol Atrovent nebulizers q.6, metoprolol 50 p.o. b.i.d., Spiriva 1 puff daily, Eliquis 2.5 p.o. b.i.d., Lasix 40 daily, Lipitor 20 daily, amlodipine 10 daily, losartan 50 daily, digoxin 125 mcg daily, Ranexa 500 p.o. b.i.d., Ultracet 1 tablet p.r.n. pain, Aldactone 25 daily and consider AICD down the line as well as will need to discuss palliative services and advanced directives. So far patient has not decided. Follow up with Vu Fan as well as in my office next week. cc: René Orona MD MTDLarissa
== END 2018-03-09 09:34 | disposition home or self-care (01) ==
LOC: SUPCPDRO → DIRADM 02:16 → 4N 02:57 → SUATTDRO 02:57 → 3S 17:08 → DIRADM 17:09 → UNDODISIN 03-09 09:34
PROVIDERS: ADMIT Internal Medicine; ATTEND Family Medicine
CPT/HCPCS: 70450; 70491; 71020; 71046; 72050; 80048; 80053; 80162; 81001; 82550; 82553; 83735; 83880; 84484; 85025; 85610; 85730; 93005; 93010; 94640; 94761; 94799; 96361; 96365; 96366; 96374; 96375; 96376; 97116; 97162; 97530; 99285; A9270; G0378; J0696; J1885; J1940; J2405; J3475; J7030; Q9967

== ENCOUNTER 2018-04-21 15:29 | Inpatient (IN) ==
[2018-04-21] MEDS ORDERED: SOLU-MEDROL IV ONE (18:38)
[2018-04-21] MEDS ORDERED: DUONEB (A & A) INH ONE (18:38)
--- NOTE | 2018-04-21 19:22 | Diag Imaging Result Doc PS360 ---
EXAM: CHEST-2 VIEWS HISTORY: sob TECHNIQUE: Chest two views COMPARISON: 03/04/2018 FINDINGS: The lungs are well expanded. The heart is not enlarged. The vessels are not distended. There are no infiltrates. No pleural effusions. 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 IMPRESSION: No acute abnormality. Electronically signed by Michael Barrera 04/21/2018 7:20 PM
[2018-04-21 19:45] LABS: BASO# 0.02 X1000 (0.0-0.2); BASO% 0.3 % (0.0-0.8); EOS# 0.47 X1000 (0.0-0.7); EOS% 6.2 % (0.0-10.0); HEMATOCRIT 44.6 % (42.0-52.0); HEMOGLOBIN 13.8 g/dL (14.0-18.0); LYMPH# 2.39 X1000 (1.2-3.4); LYMPH% 31.6 % (20.5-51.1); MCH 29.6 PG (27-31); MCHC 30.9 g/dL (33-37); MCV 95.7 FL (81-99); MONO# 1.39 X1000 (0.11-0.59); MONO% 18.4 % (1.7-9.3); MPV 10.1 FL (7.4-10.4); NEUT% 43.5 % (42.2-75.2); PLT 172 X1000 (130-400); RBC 4.66 XMIL (4.7-6.1); RDW 15.1 % (11.5-14.5); WBC 7.57 X1000 (4.8-10.8)
[2018-04-21] MEDS ORDERED: SOLU-MEDROL IM ONE (20:04)
[2018-04-21 20:09] LABS: AGAP 8; ALB/GLOB RATIO 1.6; ALBUMIN 4.1 g/dL (3.5-5.0); ALKALINE PHOSPHATASE 68 U/L (32-122); BUN 11 mg/dL (8-22); CALCIUM 9.1 mg/dL (8.8-10.2); CHLORIDE 100 mmol/L (98-107); COSMO 269; CREATININE 0.8 mg/dL (0.7-1.2); ESTIMATED GFR > 60; GLUCOSE 85 mg/dL (70-104); GOT 19 U/L (10-34); GPT 9 U/L (10-44); SODIUM 135 mmol/L (136-145); TCO2 27 mmol/L (25-35); TOTAL BILIRUBIN 1.48 mg/dL (0.20-1.00); TOTAL PROTEIN 6.7 g/dL (6.3-8.3)
[2018-04-21] MEDS ORDERED: ZOFRAN IV PRN (21:20)
--- NOTE | 2018-04-21 21:43 | PROVIDER DOCUMENTATION ---
This chart was entered by Marisa Moreno Scribe, acting as scribe for Kyle Adames MD. HPI-General Adult - General Chief Complaint: Cough Stated Complaint: COLD SYMPTOMS Time Seen by Provider: 04/21/18 18:22 Source: patient Allergies/Adverse Reactions: Patient Allergies Allergy/AdvReac Type Severity Reaction Status Date / Time No Known Allergies Allergy Verified 04/21/18 17:41 Home Medications: Home Medication List Medication Instructions Recorded Confirmed Last Taken Type Potassium Chloride 10 meq PO DAILY 05/03/17 03/04/18 03/04/18 History Albuterol 2.5MG/Ipratrop 0.5MG 3 ml INH RTQ6H #120 neb 05/06/17 03/04/18 Rx [Duoneb (A & A)] Metoprolol [Lopressor] 50 mg PO BID 05/20/17 03/04/18 03/04/18 History Tiotropium [place] Inhaler 1 puff INH RTDAILY 06/02/17 03/04/18 03/04/18 History [Spiriva] Apixaban [Eliquis] 2.5 mg PO BID 10 Days #20 tab NS 12/02/17 03/04/18 03/04/18 Rx Furosemide [Lasix] 40 mg PO DAILY #30 tab 12/11/17 03/04/18 03/04/18 Rx Atorvastatin Calcium [Lipitor] 20 mg PO DAILY 01/10/18 03/04/18 03/04/18 History Albuterol Sulfate Inhaler 2 puff INH Q6H PRN #1 inhaler 01/17/18 03/04/18 Unknown Rx [Ventolin Hfa] Amlodipine Besylate 10 mg PO DAILY 01/28/18 03/04/18 03/04/18 History Losartan Potassium 50 mg PO DAILY 01/28/18 03/04/18 03/04/18 History Digoxin [Lanoxin] 125 microgm PO DAILY #90 tab 01/31/18 03/04/18 03/04/18 Rx Ranolazine E.r. [Ranexa] 500 mg PO BID #60 tab 01/31/18 03/04/18 03/04/18 Rx Spironolactone [Aldactone] 25 mg PO DAILY #90 tab 01/31/18 03/04/1803/04/18 Rx Tramadol/APAP [Ultracet 1 ea PO Q8H PRN PRN #30 tab 01/31/18 03/04/18 03/04/18 Rx 37.5MG/325Mg] - History of Present Illness -Gen Adult Nature of Presenting Problems: pt is 87/m presenting to ED w/ fever, cough , SOB w/ wheezing. Sts no appetite and fatigue/weakness. Pt has hx of COPD, HTN, DM, A-fib. Severity: reports: moderate Onset/Duration: reports: 24 hours ago Timing: reports: still present Context/Activities at Onset: reports: none Modifying Factors: improves with: nothing Associated Symptoms: reports: cough, fever/chills, loss of appetite, shortness of breath, weakness. denies: nausea, vomiting Similar Symptoms Previously?: Yes Recently seen or treated by another doctor?: Yes Review of Systems - Adult - REVIEW OF SYSTEMS - ADULT Constitutional: reports: fever, fatique Eyes: reports: no symptoms reported Ears, Nose, Mouth & Throat: reports: no symptoms reported. denies: ear pain, throat pain Cardiovascular: reports: no symptoms reported. denies: chest pain, edema Respiratory: reports: no symptoms reported Gastrointestinal: denies: abdominal pain, diarrhea, nausea, vomiting Genitourinary: reports: no symptoms reported Musculoskeletal: reports: no symptoms reported Integumentary: reports: no symptoms reported Neurological: reports: no symptoms reported. denies: dizziness/vertigo, headache/migraines Psychiatric: reports: no symptoms reported Endocrine: reports: no symptoms reported Hematologic/Lymphatic: reports: no symptoms reported Allergic/Immunologic: reports: no symptoms reported All Other Systems: Reviewed and Negative Past History - Adult - PAST MEDICAL HISTORY-ADULT Review of Records: reports: Old Records Reviewed, Nursing Assessment Review, Medications Reviewed, Social history reviewed & non-contributory. Major Childhood Illnesses: reports: denies history Cardiovascular: reports: CHF, HTN, hyperlipidemia Respiratory: reports: asthma, COPD, sleep apnea Gastrointestinal: reports: GERD Obstetrical/Gynecological: reports: denies history Genitourinary: reports: denies history Musculoskeletal: reports: other (Mysthenia Gravis) Neurological: reports: denies history Endocrine/Immune: reports: denies history Other Conditions: reports: denies history - PRIOR SURGERIES/PROCEDURES Surgical/Procedure History: reports: cholecystectomy, hernia repair, orthopedic (extremity), joint replacement (total knee) - IMMUNIZATION STATUS Childhood Immunizations: See Nurse Assessment Flu Vaccine: See Nurse Assessment - FAMILY HISTORY Family History: reviewed, not pertinent - SOCIAL HISTORY Smoking: quit greater than 1 year Substance Use: none/never Alcohol Use Frequency: never Physical Exam-General - PHYSICAL EXAM-ADULT Initial Vital Signs Reviewed: Yes - CONSTITUTIONAL General Appearance: appears well, alert, no apparent distress - EYES Eyes: PERRL/EOMI - HEAD, EARS, NOSE, MOUTH & THROAT HENMT: normocephalic/atraumatic, moist mucous membranes, normal ENT inspection, TMs normal, pharynx normal - NECK Neck: non-tender, full range of motion, supple, normal inspection - RESPIRATORY Respiratory: chest non-tender, crackles (diffuse crackles bilaterally) - CARDIOVASCULAR Cardiovascular: regular rate, rhythm - GASTROINTESTINAL (ABDOMEN) Abdominal Exam: normal bowel sounds, non tender, soft - LYMPHATIC Lymphatic: no adenopathy - MUSCULOSKELETAL Back Exam: normal inspection Extremity: normal range of motion, non-tender, normal gait, normal inspection - SKIN Integumentary: normal color, warm/dry - NEUROLOGIC Neurologic: grossly normal - PSYCHIATRIC Psych/Mental Status: normal mood/affect, normal thought content, normal thought process, oriented x 3 Progress - PLAN OF CARE/RESULTS Progress/Plan/Lab Results: Vital Signs - 8 hr 04/21/18 15:44 Temperature 97.3 F L Pulse Rate 66 Respiratory Rate 16 Blood Pressure 173/88 O2 Sat by Pulse Oximetry 96 04/21/18 15:47 Influenza Screen - Final Nasopharyngeal 04/21/18 15:47 Group A Strep Rapid Antigen - Final Throat Orders Category Date Time Status DIRECT STREP Stat Lab 04/21/18 15:47 Completed INFLUENZA SCREEN A/B Stat Lab 04/21/18 15:47 Completed A/P: COPD exacerbation , weakness, cough, pt labs not suggestive will admit for observation. CXR no pneumonia. Result Diagrams: 04/21/18 19:30 04/21/18 19:30 - EKG 1 Time of EKG reading by physician:: 19:15 EKG Read and Signed by:: Kyle Adames EKG Interpretation (*Must complete 3 of following elements*): Abnormal (sinus rhythm with premature supraventricular complexes and with occasional ventricular complexes. Left axis deviation, Minimal voltage criteria for LVH, may be normal variant. ST&T wave abnormality, consider inferolateral ischemia Abnormal ECG) [place]: left CT Interval: normal - CONSULTS/PCP/HOSPITALIST Notification #1 *Consult/PCP/Hospitalist*: Dr Ferrer Time Discussed: 21:42 Consult Disposition: Admit Departure - Departure Date of Disposition Decision: 04/21/18 Time of Disposition Decision: 21:41 DIAGNOSIS: COPD (chronic obstructive pulmonary disease), COPD exacerbation Disposition: ADMITTED INPATIENT 09 Certified Medical Emergency: Emergent Condition: Fair Referrals and Follow-Ups: Funmi Orona MD [Primary Care Provider] - - Critical Care Note This patient required my direct & personal management of CC.: No Attestation - Physician/ HAYDEE Attestation Patient care was provided by Advanced Practice Provider:: No The physician spent face to face time with patient:: Yes Advanced Practice Provider documentation review:: Supervising physician onsite and consulted in the evaluation and care of this patient. The physician did have a face to face encounter with the patient. This chart was documented by the indicated scribe, (Marisa Moreno, Elliott) and accurately reflects the services I performed and decisions made by , Kyle Adames MD, as attested by the provider's signature.
[2018-04-21] MEDS: DUONEB (A & A) INH SCH (23:10)
--- NOTE | 2018-04-21 23:51 | HISTORY AND PHYSICAL ---
CHIEF COMPLAINT: Cough. HISTORY OF PRESENT ILLNESS: This 87-year-old male has a significant past medical history with COPD and lung issues. He also has congestive heart failure, hyperlipidemia and chronic atrial fibrillation on anticoagulation. The patient states that he had been coughing all day and came to the ER around 2 p.m. "just to see if I had the flu." He had been talking with a friend who described very similar symptoms of an unrelenting cough and that friend was recently diagnosed with the flu as well as 1 of the friend's family members. Mr. Patel did not have any direct contact with these people. He presented to the emergency room and was found to be a little bit short of breath. The family described him as acting like he was weak all day. In the emergency room, physician contacted me around 9:30 p.m. to admit the patient. It is interesting to note that the patient stated that he wanted to go home rather emphatically. The family stated that they would like him to be watched overnight, which I have no objection to given his age and other comorbidities. He describes the cough as nonproductive, but wet and rattly sounding. He has not really had any shortness of breath. He denied any fever or chills and nothing resembling a rigor. He has not had any nausea or vomiting. He has been eating well. PAST MEDICAL HISTORY: 1. Chronic obstructive pulmonary disease. 2. Hyperlipidemia. 3. Paroxysmal atrial fibrillation, on rate controlled medications and Eliquis. 4. Hypertension. 5. Gastroesophageal reflux disease. 6. Questionable history of myasthenia gravis. PAST SURGICAL HISTORY: 1. Ill-defined back surgery. 2. Right rotator cuff surgery. 3. Left knee arthroplasty. 4. Cholecystectomy. 5. Left elbow surgery. SOCIAL HISTORY: The patient is a former smoker who quit smoking a long time ago. He does not use any alcohol or any pain medications. He is still working but lives alone although 1 of his relatives stays with him at night. FAMILY HISTORY: Noncontributory. ALLERGIES: No known drug allergies. HOME MEDICATIONS: These will be reconciled upon admission and we will incorporate these into the record. PHYSICAL EXAMINATION: GENERAL: He is a thin black male in no acute distress. He is alert, oriented, conversive and appropriate. NECK: Exam reveals no JVD. LUNGS: The patient's lungs are clear to auscultation in all spring. There is no wheezing. He has no dyspnea that I can ascertain. He does have a somewhat wet, rattly cough which was nonproductive and was evident during my examination although it was not a prominent feature of the examination. ENT: Exam is unremarkable. ABDOMEN: Bowel sounds are present. He is nontender. EXTREMITIES: There is no peripheral edema noted. Peripheral pulses were easily palpable. NEUROLOGIC: The patient moves freely in the bed. His speech is clear. Cranial nerves appear to be intact by observation. LABORATORY: White cell count 7.5, hemoglobin 13.8. BUN 11, creatinine 0.8, total bilirubin slightly up at 1.48. ProBNP is 2528 (his baseline is lower than this but it has gone up as high as 8700 during acute exacerbations). ASSESSMENT AND PLAN: 1. The patient's cough is likely just exacerbation of chronic obstructive pulmonary disease. Chest x-ray did not show any infiltrative process. Flu testing and rapid strep were negative. I want to give the patient breathing treatments and observe overnight monitoring his oxygen saturation. I do not feel that there is need for any antibiotics. 2. The patient's overall weakness may be due to some other viral syndrome or his other chronic conditions. Again, we will observe these and make adjustments as necessary. 3. History of congestive heart failure is noted. He did not appear to have any evidence of fluid overload at the present time. 4. The patient has atrial fibrillation, but based on the vital signs and my examination the patient is in sinus rhythm right now. 5. The patient's blood pressure is elevated a bit beyond his usual level of control. We will continue to monitor this. It may be that since he missed his afternoon dosing of certain medications that his blood pressure is running up. 6. Deep venous thrombosis prophylaxis will be put in place. cc: MD René Garcia MD
[2018-04-22] MEDS: DUONEB (A & A) INH SCH ×6 (02:45→23:15)
[2018-04-22] MEDS: TYLENOL PO PRN ×2 (03:24→22:47)
[2018-04-22] MEDS: NORVASC PO SCH (09:51)
[2018-04-22] MEDS: LOPRESSOR PO SCH ×2 (09:51→20:06)
[2018-04-22] MEDS: LIPITOR PO SCH (09:51)
[2018-04-22] MEDS: LANOXIN PO SCH (09:51)
[2018-04-22] MEDS: RANEXA PO SCH ×2 (09:51→20:05)
[2018-04-22] MEDS: COZAAR PO SCH (09:51)
[2018-04-22] MEDS: LASIX PO SCH (09:52)
[2018-04-22] MEDS: ELIQUIS PO SCH ×2 (09:52→20:05)
[2018-04-22] MEDS: KLOR-CON PO SCH (09:52)
[2018-04-22] MEDS: ALDACTONE PO SCH (09:52)
--- NOTE | 2018-04-22 16:16 | PROGRESS NOTE ---
DATE: 04/22/2018 SUBJECTIVE: The patient was admitted yesterday for cough. He came in the middle of the night as if he had the flu. Admitted by hospitalist. This is basically for observation. Family was at bedside. OBJECTIVE: Vital signs: Temperature 97. The vitals are stable. HEENT: Within normal limits. Chest: Bilateral air entry. Heart: Sounds are regular. Abdomen: Belly is soft and nontender. No obvious deficits noted. INVESTIGATIONS: CBC is normal. SMA 7 was normal. ProBNP slightly high.. LFTs were normal. Influenza test was negative. Rapid strep test was negative. ASSESSMENT AND PLAN: 1. Acute COPD stable. 2. 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 Follow up with pain specialist. 3. PAF with ischemic cardiomyopathy. Continue on Eliquis 2.5 p.o. b.i.d., digitalis 125 daily, Lasix 40 daily, losartan 50 mg daily, metoprolol 50 p.o. b.i.d., Ranexa 500 p.o. b.i.d., and Aldactone 25 daily. 4. Hypertension is stable. 5. Chronic COPD stable. 6. At this time, he is stable. There is no need to do any further workup, and discharge the patient in the morning. LEVEL OF DOCUMENTATION: 25 minutes. cc: René Orona MD MTDD
[2018-04-23] MEDS: DUONEB (A & A) INH SCH ×2 (03:10→07:46)
[2018-04-23 07:34] VITALS: BP 146/77
[2018-04-23] MEDS: RANEXA PO SCH (09:25)
[2018-04-23] MEDS: LASIX PO SCH (09:25)
[2018-04-23] MEDS: COZAAR PO SCH (09:25)
[2018-04-23] MEDS: KLOR-CON PO SCH (09:25)
[2018-04-23] MEDS: ALDACTONE PO SCH (09:25)
[2018-04-23] MEDS: NORVASC PO SCH (09:26)
[2018-04-23] MEDS: LIPITOR PO SCH (09:26)
[2018-04-23] MEDS: ELIQUIS PO SCH (09:26)
[2018-04-23] MEDS: LOPRESSOR PO SCH (09:26)
--- NOTE | 2018-04-23 09:26 | EKG Report ---
Test Performed on : 04/21/2018 7:14:50 PM Test Reason : CP Blood Pressure : / mmHG Vent. Rate : 064 BPM Atrial Rate : 064 BPM P-R Int : 168 ms QRS Dur : 098 ms QT Int : 398 ms P-R-T Axes : 050 -36 -79 degrees QTc Int : 410 ms Sinus rhythm. with premature supraventricular complexes. and with occasional premature ventricular co mplexes. Left axis deviation Minimal voltage criteria for LVH, may be normal variant ST & T wave abnormality, consider inferolateral ischemia Abnormal ECG When compared with ECG of 08-MAR-2018 07:48, premature ventricular complexes. are now present premature supraventricular complexes. are now present Unconfirmed Result
[2018-04-23] MEDS: LANOXIN PO SCH (09:27)
[2018-04-23] MEDS ORDERED: FLU VACCINE IM ONE (10:21)
--- NOTE | 2018-04-24 04:25 | DISCHARGE SUMMARY ---
ADMISSION DATE: 04/21/2018 DISCHARGE DATE: 04/23/2018 DISCHARGING DIAGNOSES: Acute chronic obstructive pulmonary disease exacerbation. SECONDARY DIAGNOSES: 1. 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 2. Ischemic cardiomyopathy with EF 30% with nonsustained ventricular tachycardia. 3. COPD. 4. Hypertension. 5. Hyperlipidemia. 6. Acid reflux disease. 7. Paroxysmal atrial fibrillation. BRIEF HISTORY: Please see the H and P that was done by hospitalist. In brief, he is an 87-year- old who came in with shortness of breath, cough, and not able to breathe. He has known history of COPD and CHF. The patient was seen in the ER. Hospital workup was essentially unremarkable. The patient was given some antibiotics and symptomatic treatment. Family has been reassured. He was discharged to home in stable condition. LABORATORY: CBC: White cell count 7.5, hematocrit 44 and platelets 172,000. SMA 7 is normal. Calcium 9.8. LFTs were normal. ProBNP 2500. Cardiac enzymes were normal. Influenza was negative. Group strep was negative. Chest x-ray was stable. DISCHARGE INSTRUCTIONS: 1. Potassium 10 mEq daily. 2. DuoNeb 1 puff q.6. 3. Metoprolol 50 p.o. b.i.d. 4. Spiriva 1 puff inhalation daily. 5. Eliquis 2.5 p.o. b.i.d. 6. Lasix 40 daily. 7. Lipitor 40 daily. 8. Ventolin HFA q.6h as needed. 9. Amlodipine 10 daily. 10. Losartan 50 daily. 11. Lanoxin 125 mcg daily. 12. Ranexa 500 p.o. b.i.d. 13. Ultracet 1 tablet q.8h. 14. Aldactone 25 daily. FOLLOW UP: [facility] for chronic neck pain. Follow up in my office in 2 weeks. cc: René Orona MD
== END 2018-04-23 10:53 | disposition home or self-care (01) | DRG 191 ==
LOC: ED 15:29 → SUATTDRO 23:23 → 3N 23:23
PROVIDERS: ADMIT Internal Medicine; ATTEND Internal Medicine
CPT/HCPCS: 71020; 71046; 80053; 83880; 84484; 85025; 87081; 87275; 87276; 87430; 87804; 90686; 93005; 94640; 94761; 96372; 99285; A9270; J2930

== ENCOUNTER 2018-08-11 07:17 | Inpatient (IN) ==
--- NOTE | 2018-08-11 08:27 | PROVIDER DOCUMENTATION ---
HPI-Respiratory General - General Chief Complaint: Shortness of Breath Stated Complaint: SOB,ROBLES,COUGHING Time Seen by Provider: 08/11/18 08:03 Source: patient Allergies/Adverse Reactions: Patient Allergies Allergy/AdvReac Type Severity Reaction Status Date / Time No Known Allergies Allergy Verified 08/11/18 08:00 Home Medications: Home Medication List Medication Instructions Recorded Confirmed Last Taken Type Potassium Chloride 10 meq PO DAILY 05/03/17 08/11/18 04/21/18 09:00 History Metoprolol [Lopressor] 50 mg PO BID 05/20/17 08/11/18 04/21/18 09:00 History Tiotropium [place] Inhaler 1 puff INH RTDAILY 06/02/17 08/11/18 03/04/18 History [Spiriva] Apixaban [Eliquis] 2.5 mg PO BID 10 Days #20 tab NS 12/02/17 08/11/18 04/21/18 09:00 Rx Furosemide [Lasix] 40 mg PO DAILY #30 tab 12/11/17 08/11/18 04/21/18 09:00 Rx Atorvastatin Calcium [Lipitor] 20 mg PO DAILY 01/10/18 08/11/18 04/21/18 09:00 History Albuterol Sulfate Inhaler 2 puff INH Q6H PRN #1 inhaler 01/17/18 08/11/18 Unknown Rx [Ventolin Hfa] Amlodipine Besylate 10 mg PO DAILY 01/28/18 08/11/18 04/21/18 09:00 History Losartan Potassium 50 mg PO DAILY 01/28/18 08/11/18 04/21/18 09:00 History Digoxin [Lanoxin] 125 microgm PO DAILY #90 tab 01/31/18 08/11/18 04/14/18 09:00 Rx Ranolazine E.r. [Ranexa] 500 mg PO BID #60 tab 01/31/18 08/11/18 04/21/18 09:00 Rx Spironolactone [Aldactone] 25 mg PO DAILY #90 tab 01/31/18 08/11/18 04/21/18 09:00 Rx Tramadol/APAP [Ultracet 1 ea PO Q8H PRN PRN #30 tab 01/31/18 08/11/18 03/04/18 Rx 37.5MG/325Mg] - History of Present Illness-Resp Nature of Presenting Problem: 87 y/o BM c/o yellow prod cough since last night and has hx of COPD. Pt denies any fever or other symptoms at time of exam. Pt relates that he has myasthenia gravis and admits that he refuses the medications for it. Quality of Pain: reports: none Severity in ED: reports: mild Onset/Duration: reports: last night Timing: reports: still present Context: reports: recent URI Exposure: reports: illness exposure Cough Quality/Degree: reports: mild, productive cough (yellow) Episode Frequency: occasional episodes Current Respiratory Medication Therapy: Initiated see nurses note Modifying Factors: improves with: coughing Associated Symptoms: reports: cough Similar Symptoms Previously?: Yes Recently seen or treated by another doctor?: No Review of Systems - Adult - REVIEW OF SYSTEMS - ADULT Constitutional: reports: no symptoms reported, see HPI Eyes: reports: no symptoms reported, see HPI Ears, Nose, Mouth & Throat: reports: no symptoms reported, see HPI Cardiovascular: reports: no symptoms reported, see HPI Respiratory: reports: see HPI, cough Gastrointestinal: reports: no symptoms reported, see HPI Genitourinary: reports: no symptoms reported, see HPI Musculoskeletal: reports: no symptoms reported, see HPI Integumentary: reports: no symptoms reported, see HPI Neurological: reports: no symptoms reported, see HPI Psychiatric: reports: no symptoms reported, see HPI Endocrine: reports: no symptoms reported, see HPI Hematologic/Lymphatic: reports: no symptoms reported, see HPI Allergic/Immunologic: reports: no symptoms reported, see HPI All Other Systems: Reviewed and Negative Past History - Adult - PAST MEDICAL HISTORY-ADULT Review of Records: reports: Nursing Assessment Review, Medications Reviewed, Social history reviewed & non-contributory. Major Childhood Illnesses: reports: denies history Cardiovascular: reports: CHF, HTN, hyperlipidemia Respiratory: reports: asthma, COPD, sleep apnea Gastrointestinal: reports: GERD Obstetrical/Gynecological: reports: denies history Genitourinary: reports: denies history Musculoskeletal: reports: other (Mysthenia Gravis) Neurological: reports: denies history Psychiatric: reports: denies history Endocrine/Immune: reports: denies history Other Conditions: reports: denies history - PRIOR SURGERIES/PROCEDURES Surgical/Procedure History: reports: cholecystectomy, hernia repair, orthopedic (extremity), joint replacement (total knee) - IMMUNIZATION STATUS Childhood Immunizations: See Nurse Assessment Flu Vaccine: See Nurse Assessment - FAMILY HISTORY Family History: reviewed, not pertinent Physical Exam-General - PHYSICAL EXAM-ADULT Initial Vital Signs Reviewed: Yes - CONSTITUTIONAL General Appearance: appears well, alert, no apparent distress - EYES Eyes: PERRL/EOMI - HEAD, EARS, NOSE, MOUTH & THROAT HENMT: normocephalic/atraumatic, moist mucous membranes - NECK Neck: non-tender, full range of motion, supple, normal inspection - RESPIRATORY Respiratory: chest non-tender, lungs clear, normal breath sounds, no pleuratic chest pain, no respiratory distress, no accessory muscle use - CARDIOVASCULAR Cardiovascular: normal peripheral pulses, regular rate, rhythm, no edema, no gallop, no JVD - GASTROINTESTINAL (ABDOMEN) Abdominal Exam: normal bowel sounds, non tender, soft, no organomegaly, no pulsatile mass - LYMPHATIC Lymphatic: no adenopathy - MUSCULOSKELETAL Back Exam: normal inspection, no CVA tenderness, no vertebral tenderness Extremity: normal range of motion, non-tender, normal gait, normal inspection, no pedal edema, no calf tenderness, normal capillary refill - SKIN Integumentary: normal color, normal turgor - NEUROLOGIC Neurologic: trade marker II-XII nml as tested, grossly normal, no motor/sensory deficits - PSYCHIATRIC Psych/Mental Status: normal mood/affect, normal thought content, normal thought process, oriented x 3 - HEART Score HEART Score: History: Slightly Suspicious HEART Score: ECG: Non-Specific Repolarization Disturbance/LBBB/PM HEART Score: Age: > or = 65 Years HEART Score: Risk Factors for Atherosclerotic Disease: 1 or 2 Risk Factors HEART Score: Troponin: < or = Normal Limit Total HEART Score:: 4 Progress - PLAN OF CARE/RESULTS Progress/Plan/Lab Results: Vital Signs - 8 hr 08/11/18 07:21 08/11/18 07:51 08/11/18 08:01 Temperature 97.4 F L Pulse Rate 56 L 77 67 Respiratory Rate 18 31 H 17 Blood Pressure 160/78 125/75 135/83 O2 Sat by Pulse Oximetry 96 96 96 08/11/18 08:17 08/11/18 08:31 08/11/18 09:01 Temperature Pulse Rate 75 74 75 Respiratory Rate 36 H 17 29 H Blood Pressure 130/78 132/70 131/83 O2 Sat by Pulse Oximetry 95 97 95 08/11/18 09:31 08/11/18 09:42 Temperature Pulse Rate 76 79 Respiratory Rate 26 H 18 Blood Pressure 127/79 O2 Sat by Pulse Oximetry 95 Laboratory Results - last 24 hr 08/11/18 08/11/18 08/11/18 07:44 07:44 07:44 WBC 10.20 RBC 4.31 L Hgb 11.8 L Hct 37.6 L MCV 87.2 MCH 27.4 MCHC 31.4 L RDW Std Deviation 15.4 H Plt Count 258 MPV 10.3 Immature Gran % (Auto) 0.0 Neut % (Auto) 57.7 Lymph % (Auto) 15.4 L [place] % (Auto) 20.0 H Eos % (Auto) 6.6 Baso % (Auto) 0.3 Immature Gran # (Auto) 0.00 Neut # (Auto) 5.89 Lymph # (Auto) 1.57 Chicot # (Auto) 2.04 H Eos # (Auto) 0.67 Baso # (Auto) 0.03 Sodium 139 Potassium 4.0 Chloride 105 Carbon Dioxide 22 L Anion Gap 12 BUN 9 Creatinine 0.7 Estimated GFR/1.73 m2 > 60 BUN/Creatinine Ratio 13 Glucose 79 Calculated Osmolality 275 Calcium 9.4 Total Bilirubin 0.94 AST 16 ALT 8 L Alkaline Phosphatase 85 Troponin T Toy-[id number]-Nrqlrkwgvhm Pept 2863 H Total Protein 6.0 L Albumin 3.3 L Globulin 2.7 Albumin/Globulin Ratio 1.2 08/11/18 07:44 WBC RBC Hgb Hct MCV MCH MCHC RDW Std Deviation Plt Count MPV Immature Gran % (Auto) Neut % (Auto) Lymph % (Auto) [place] % (Auto) Eos % (Auto) Baso % (Auto) Immature Gran # (Auto) Neut # (Auto) Lymph # (Auto) [place] # (Auto) Eos # (Auto) Baso # (Auto) Sodium Potassium Chloride Carbon Dioxide Anion Gap BUN Creatinine Estimated GFR/1.73 m2 BUN/Creatinine Ratio Glucose Calculated Osmolality Calcium Total Bilirubin AST ALT Alkaline Phosphatase Troponin T < 0.010 Rss-Y-Ecxvkqeudcu Pept Total Protein Albumin Globulin Albumin/Globulin Ratio Orders Category Date Time Status Admit - [facility] Routine AdmDCTranf 08/11/18 10:41 Active CHEST-1 VIEW [RAD] Stat Exams 08/11/18 08:20 Completed BLOOD CULTURE [BLDCUL] Stat Lab 08/11/18 10:31 Received BNP [PRO B-NATRIURETIC PEPTIDE] Stat Lab 08/11/18 07:44 Completed CBC WITH ELECTRONIC DIFF [HEME] Stat Lab 08/11/18 07:44 Completed COMPREHENSIVE METABOLIC PANEL [CHEM] Stat Lab 08/11/18 07:44 Completed TROPONIN T Stat Lab 08/11/18 07:44 Completed Acetaminophen [Tylenol] Med 08/11/18 10:42 Discontinued 1,000 mg PO NOW ONE Albuterol 2.5MG/Ipratrop 0.5MG [Duoneb (A & A)] Med 08/11/18 08:57 Discontinued 3 ml INH NOW ONE CefTRIAXONE [Rocephin] 1 gm Med 08/11/18 10:09 Discontinued 0.9% Sodium Chloride Inj [Ns] 50 ml IV NOW Furosemide [Lasix] Med 08/11/18 10:41 Discontinued 20 mg IV NOW ONE Aerosol Treatments Routine Oth 08/11/18 08:57 Completed Aerosol Treatments Stat Oth 08/11/18 08:57 Completed EKG [EKG] Stat Ther 08/11/18 07:55 Ordered Transfer/Admit Order [TRANSFER] Routine Transfer 08/11/18 10:42 Ordered Result Diagrams: 08/11/18 07:44 08/11/18 07:44 - EKG 1 Time of EKG reading by physician:: 07:30 EKG Read and Signed by:: Will Rojo EKG Interpretation (*Must complete 3 of following elements*): Abnormal Rate: 76 Rhythm: SR [place]: normal QRS: normal [place] Interval: normal ST Wave: normal - XRAY 1 XRAY Study: Chest Impression: Abnormal, See EMR Report ( EXAM: CHEST-1 VIEW INDICATION: sob TECHNIQUE: One view COMPARISON: 04/21/2018 FINDINGS: There is a left upper lobe opacity near the apex suggesting developing infiltrate. There is no d iscrete pleural fluid collection or pneumothorax. The cardiomediastinal silhouette and central vasculature are grossly unremarkable. IMPRESSION: Left apical opacity suggesting developing infiltrate. Follow-up radiograph is recommended to assure clearing. Electronically signed by Artem Taylor 08/11/2018 8:57 AM 08/11/18 0857 Interpreting Physician: Artem Taylor MD Dictated Date/Time: 08/11/18 0856 cc: Will Rojo MD; Funmi Orona MD) - CONSULTS/PCP/HOSPITALIST Notification #1 *Consult/PCP/Hospitalist*: Dr Porter for Dr Orona Time Discussed: 10:39 Consult Disposition: Admit Departure - Departure Date of Disposition Decision: 08/11/18 Time of Disposition Decision: 10:40 DIAGNOSIS: COPD exacerbation, Pneumonia, CHF (congestive heart failure) Disposition: ADMITTED INPATIENT 09 Certified Medical Emergency: Emergent Condition: Fair Referrals and Follow-Ups: Funmi Orona MD [Primary Care Provider] - - Critical Care Note This patient required my direct & personal management of CC.: No Attestation - Physician/ HAYDEE Attestation Patient care was provided by Advanced Practice Provider:: No The physician spent face to face time with patient:: Yes Advanced Practice Provider documentation review:: Supervising physician onsite and consulted in the evaluation and care of this patient. The physician did have a face to face encounter with the patient.
[2018-08-11] MEDS ORDERED: DUONEB (A & A) INH ONE (08:57)
--- NOTE | 2018-08-11 09:00 | Diag Imaging Result Doc PS360 ---
EXAM: CHEST-1 VIEW INDICATION: sob TECHNIQUE: One view COMPARISON: 04/21/2018 FINDINGS: There is a left upper lobe opacity near the apex suggesting developing infiltrate. There is no discrete pleural fluid collection or pneumothorax. The cardiomediastinal silhouette and central vasculature are grossly unremarkable. IMPRESSION: Left apical opacity suggesting developing infiltrate. Follow-up radiograph is recommended to assure clearing. Electronically signed by Artem Taylor 08/11/2018 8:57 AM
[2018-08-11 09:16] LABS: BASO# 0.03 X1000 (0.0-0.2); BASO% 0.3 % (0.0-0.8); EOS# 0.67 X1000 (0.0-0.7); EOS% 6.6 % (0.0-10.0); HEMATOCRIT 37.6 % (42.0-52.0); HEMOGLOBIN 11.8 g/dL (14.0-18.0); LYMPH# 1.57 X1000 (1.2-3.4); LYMPH% 15.4 % (20.5-51.1); MCH 27.4 PG (27-31); MCHC 31.4 g/dL (33-37); MCV 87.2 FL (81-99); MONO# 2.04 X1000 (0.11-0.59); MPV 10.3 FL (7.4-10.4); NEUT# 5.89 X1000 (1.4-6.5); NEUT% 57.7 % (42.2-75.2); PLT 258 X1000 (130-400); RBC 4.31 XMIL (4.7-6.1); RDW 15.4 % (11.5-14.5)
[2018-08-11 09:44] LABS: AGAP 12; ALB/GLOB RATIO 1.2; ALBUMIN 3.3 g/dL (3.5-5.0); ALKALINE PHOSPHATASE 85 U/L (32-122); BUN 9 mg/dL (8-22); CALCIUM 9.4 mg/dL (8.8-10.2); CHLORIDE 105 mmol/L (98-107); COSMO 275; CREATININE 0.7 mg/dL (0.7-1.2); ESTIMATED GFR > 60; GLUCOSE 79 mg/dL (70-104); GOT 16 U/L (10-34); GPT 8 U/L (10-44); SODIUM 139 mmol/L (136-145); TCO2 22 mmol/L (25-35); TOTAL BILIRUBIN 0.94 mg/dL (0.20-1.00)
[2018-08-11] MEDS ORDERED: ROCEPHIN 1 GM in NS 50 ML IV ONE (10:09)
[2018-08-11] MEDS ORDERED: LASIX IV ONE (10:41)
[2018-08-11] MEDS ORDERED: TYLENOL PO ONE (10:42)
[2018-08-11] MEDS: ROBITUSSIN-DM PO SCH ×2 (15:59→20:44)
[2018-08-11] MEDS: ALDACTONE PO SCH (16:00)
[2018-08-11] MEDS: ZITHROMAX 500 MG/NS 500 MG/250 ML IVPB IV SCH (16:07)
[2018-08-11] MEDS: XOPENEX NEB INH SCH ×2 (16:17→19:57)
--- NOTE | 2018-08-11 18:17 | HISTORY AND PHYSICAL ---
CHIEF COMPLAINT: Shortness of breath. HISTORY OF PRESENT ILLNESS: The patient is an 87-year-old black male followed by Dr. Ankit Orona. The patient apparently just got out of [facility] within the past week or so. He was on antibiotics over there for pneumonia by report but did not get his antibiotics filled for 3 or 4 days and so was off of it had a setback in his recovery. He did see Dr. Orona in Dr. Orona's office and Dr. Orona advised him to get the antibiotic refilled and start taking it but patient has failed to improve. He has been having pronounced shortness of breath, cough productive of thick phlegm, is unclear which antibiotic he was taking from the [facility]. Daughter says he was taking it for "walking pneumonia." Patient has no history of fever, has been eating fairly well. He does ambulate some in his home. Does have a prominent history of ischemic cardiomyopathy with EF of 20 to 30 percent. MEDICATIONS: Prior to admission that are noted are KCl 10 mEq p.o. daily, Lopressor 50 mg p.o. b.i.d., Spiriva 1 inhalation daily, Eliquis 2.5 mg p.o. b.i.d., Lasix 40 mg p.o. q.a.m., Aldactone 25 mg p.o. q.a.m., Lipitor 20 mg p.o. daily, Ventolin HFA inhaler 2 puffs q.6 hours p.r.n. shortness of breath, Norvasc 10 mg p.o. daily, losartan 50 mg p.o. daily, digoxin 125 mcg p.o. daily, Ranexa 500 mg p.o. b.i.d., Ultracet 1 p.o. q.8 hours p.r.n. pain. ALLERGIES: NKDA. PAST MEDICAL HISTORY: 1. PAF on chronic anticoagulation. 2. Ischemic cardiomyopathy with EF 20 to 30 percent with echocardiogram done within the past 10 months or so as noted by Dr. Anand's note on prior hospitalization back in January of last year. 3. History of NSVT. 4. Severe COPD. 5. Hypertension. 6. Hyperlipidemia. 7. GERD. 8. Chronic neck pain with C-spine spondylosis. 9. There is some possible history of myasthenia gravis. PAST SURGICAL HISTORY: 1. Back surgery. 2. Rotator cuff surgery. 3. Left knee arthroplasty. 4. Cholecystectomy. 5. Left elbow surgery. FAMILY HISTORY: Noncontributory. SOCIAL HISTORY: The patient has been a longstanding smoker, apparently is off cigarettes currently. No alcohol use. Family members help in his care. He lives in the local area. He has children. He is . REVIEW OF SYSTEMS: Negative except as above. PHYSICAL EXAM: Afebrile, temperature 97.5 degrees, pulse 67, respirations 20, blood pressure 127/62, O2 saturation on room air 97%, having been as low as 92% in the ER this morning. GENERAL: Frail elderly appearing black male with mild increased work of breathing, pursed lips, mild cachexia. SKIN: No rashes. FLORI. EOMI. Sclerae minimal injection. Moderate arcus senilis. OP slightly dry mucous membranes. No redness at the throat. NECK: No LA, TMG or bruits. Mild JVD. CV: RRR without murmur. LUNGS: Distant breath sounds, rare wheezes. BACK: Nontender. ABDOMEN: Soft, nontender, nondistended. No mass or organomegaly. GENITOURINARY/RECTAL: Deferred. EXTREMITIES: No calf tenderness, cords or edema. Peripheral pulses lower extremities 1 to 2+/4. NEURO: Cranial nerves 2-12 are intact nonfocal. Moves all extremities well. Is slow of speech and is a very poor historian, some information gained from him and some from his daughter but overall poor history obtained. LAB DATA: Shows white count 10.2, hemoglobin 11.8 down from 13.8 back in April admission, hematocrit 37.6, platelets 258,000, neutrophils 57%, lymphocytes 15.4, monocytes 20. Sodium 139, potassium 4.0, chloride 105, CO2 22, BUN 9, creatinine 0.7, glucose 79, calcium 9.4, total bilirubin 0.94, AST 16, ALT 8, alkaline phosphatase 85. Troponin less than 0.01, total protein 6.0, albumin 3.3. Chest x-ray reveals developing infiltrate left apical area. To me it appears he may have some CHF pattern as well, although this is not seen by the radiologist. ASSESSMENT: 1. Left upper lobe pneumonia. 2. Acute on chronic systolic congestive heart failure. 3. Ischemic cardiomyopathy with history of ejection fraction 20 to 30 percent. 4. Paroxysmal atrial fibrillation on chronic anticoagulation. 5. Advanced chronic obstructive pulmonary disease. 6. Hypertension. 7. Gastroesophageal reflux disease. 8. Hyperlipidemia. PLAN: Will admit the patient. Give him slight increased dose on his diuretics. Give him Lasix IV 40 q.12 hours. Continue Aldactone. Continue home medications except switch him over to Xopenex nebulizer treatments q.4 hours while awake while continuing Spiriva. We will monitor strict I's and O's, place him on antibiotics of Rocephin and Zithromax. Blood cultures x2 have been obtained and will follow those. Again will monitor his I's and O's closely and consider repeat echocardiogram next week. cc: Josue Proter MD
[2018-08-11] MEDS: NS NEB INH SCH (19:57)
[2018-08-11] MEDS: ELIQUIS PO SCH (20:44)
[2018-08-11] MEDS: LASIX IV SCH (20:44)
[2018-08-11] MEDS: LOPRESSOR PO SCH (20:44)
[2018-08-11] MEDS: RANEXA PO SCH (20:44)
[2018-08-12] MEDS: ROBITUSSIN-DM PO SCH ×6 (00:04→21:28)
[2018-08-12] MEDS: XOPENEX NEB INH SCH ×4 (03:55→21:15)
[2018-08-12 07:07] LABS: BASO# 0.03 X1000 (0.0-0.2); BASO% 0.3 % (0.0-0.8); EOS# 0.81 X1000 (0.0-0.7); EOS% 9.3 % (0.0-10.0); HEMATOCRIT 36.9 % (42.0-52.0); HEMOGLOBIN 11.7 g/dL (14.0-18.0); IMM GRAN# 0.02 X1000 (0.0-0.04); IMM GRAN% 0.2 % (0.0-0.5); LYMPH# 1.61 X1000 (1.2-3.4); LYMPH% 18.4 % (20.5-51.1); MCH 27.4 PG (27-31); MCHC 31.7 g/dL (33-37); MCV 86.4 FL (81-99); MONO# 1.69 X1000 (0.11-0.59); MONO% 19.3 % (1.7-9.3); MPV 10.6 FL (7.4-10.4); NEUT# 4.58 X1000 (1.4-6.5); NEUT% 52.5 % (42.2-75.2); PLT 242 X1000 (130-400); RBC 4.27 XMIL (4.7-6.1); RDW 15.3 % (11.5-14.5); WBC 8.74 X1000 (4.8-10.8)
[2018-08-12 07:31] LABS: AGAP 12; BUN 11 mg/dL (8-22); CALCIUM 9.2 mg/dL (8.8-10.2); CHLORIDE 103 mmol/L (98-107); COSMO 278; CREATININE 0.7 mg/dL (0.7-1.2); ESTIMATED GFR > 60; GLUCOSE 82 mg/dL (70-104); POTASSIUM 3.7 mmol/L (3.5-5.1); SODIUM 140 mmol/L (136-145); TCO2 25 mmol/L (25-35)
[2018-08-12] MEDS: ALDACTONE PO SCH (08:44)
[2018-08-12] MEDS: ELIQUIS PO SCH ×2 (08:44→21:29)
[2018-08-12] MEDS: LANOXIN PO SCH (08:44)
[2018-08-12] MEDS: RANEXA PO SCH ×2 (08:45→21:29)
[2018-08-12] MEDS: NORVASC PO SCH (08:45)
[2018-08-12] MEDS: LOPRESSOR PO SCH ×2 (08:45→21:29)
[2018-08-12] MEDS: KLOR-CON PO SCH (08:45)
[2018-08-12] MEDS: COZAAR PO SCH (08:45)
[2018-08-12] MEDS: LASIX IV SCH ×2 (08:46→21:30)
--- NOTE | 2018-08-12 10:27 | PROGRESS NOTE ---
DATE: 08/12/2018 SUBJECTIVE: The patient says he is feeling a little better. He had less cough with the Robitussin DM used last night. OBJECTIVE: Vital Signs: Afebrile, pulse 84, respirations 16, blood pressure 137/71, O2 saturation on room air 94 to 97 percent. I's and O's show 520 in and 1040 out. Bowel movement x1. LABORATORY DATA: Sodium 140, potassium 3.7, chloride 103, CO2 25, BUN 11, creatinine 0.7, glucose 82, calcium 9.2. White count 8.7, hemoglobin 11.7, platelets 242,000. ASSESSMENT: 1. Left upper lobe infiltrate, thought related to pneumonia. 2. Acute on chronic systolic congestive heart failure. 3. Ischemic cardiomyopathy with history of ejection fraction 20 to 30 percent. 4. Paroxysmal atrial fibrillation on chronic anticoagulation. 5. Advanced chronic obstructive pulmonary disease. 6. Hypertension. 7. Gastroesophageal reflux disease. 8. Hyperlipidemia. PLAN: Continue Lasix IV q.12 hours along with Aldactone 25 mg in the morning, continue KCl 30 mEq daily. We will monitor his electrolytes and CBC closely in the morning. We will repeat chest x- ray as well. Continue Xopenex, nebulizer treatments, Spiriva, IV Rocephin and Zithromax, and follow his blood cultures. Notably, the blood cultures are negative thus far. Continue to follow the I Os. Consideration for repeat echocardiogram tomorrow as it has been about 10 to 12 months since his last one. cc: Josue Porter MD
[2018-08-12] MEDS: SPIRIVA INH SCH (11:38)
[2018-08-12] MEDS: ZITHROMAX 500 MG/NS 500 MG/250 ML IVPB IV SCH (12:13)
[2018-08-12] MEDS: LIPITOR PO SCH (21:29)
[2018-08-13] MEDS: ROBITUSSIN-DM PO SCH ×6 (00:45→23:11)
[2018-08-13] MEDS: XOPENEX NEB INH SCH ×4 (03:55→20:00)
[2018-08-13 06:43] LABS: BASO# 0.02 X1000 (0.0-0.2); BASO% 0.2 % (0.0-0.8); EOS# 0.64 X1000 (0.0-0.7); EOS% 6.8 % (0.0-10.0); HEMOGLOBIN 12.3 g/dL (14.0-18.0); IMM GRAN# 0.03 X1000 (0.0-0.04); IMM GRAN% 0.3 % (0.0-0.5); LYMPH# 1.66 X1000 (1.2-3.4); LYMPH% 17.6 % (20.5-51.1); MCH 27.1 PG (27-31); MCHC 31.5 g/dL (33-37); MCV 85.9 FL (81-99); MONO# 2.15 X1000 (0.11-0.59); MONO% 22.8 % (1.7-9.3); MPV 10.2 FL (7.4-10.4); NEUT# 4.93 X1000 (1.4-6.5); NEUT% 52.3 % (42.2-75.2); PLT 252 X1000 (130-400); RBC 4.54 XMIL (4.7-6.1); RDW 15.6 % (11.5-14.5); WBC 9.43 X1000 (4.8-10.8)
[2018-08-13 07:28] LABS: AGAP 12; BUN 16 mg/dL (8-22); CALCIUM 9.8 mg/dL (8.8-10.2); CHLORIDE 102 mmol/L (98-107); COSMO 282; CREATININE 0.9 mg/dL (0.7-1.2); ESTIMATED GFR > 60; GLUCOSE 117 mg/dL (70-104); POTASSIUM 4.4 mmol/L (3.5-5.1); SODIUM 140 mmol/L (136-145); TCO2 26 mmol/L (25-35)
[2018-08-13 07:36] LABS: EOS 7 % (1-10); LYMPHS 15 % (21-51); MONO 17 % (1-9); SEGS 61 % (42-75)
--- NOTE | 2018-08-13 07:45 | Diag Imaging Result Doc PS360 ---
EXAM: CHEST-2 VIEWS INDICATION: lt apical infiltrate TECHNIQUE: 2 views COMPARISON: 08/11/2018 FINDINGS: At the left upper lobe consolidation indicating pneumonia is grossly stable. No new consolidation is identified. Cardiac silhouette is stable. IMPRESSION: Stable chest. Electronically signed by Artem Taylor 08/13/2018 7:43 AM
--- NOTE | 2018-08-13 08:29 | EKG Report ---
Test Performed on : 08/11/2018 07:30:08 AM Test Reason : SOB Blood Pressure : / mmHG Vent. Rate : 076 BPM Atrial Rate : 076 BPM P-R Int : 172 ms QRS Dur : 114 ms QT Int : 402 ms P-R-T Axes : 073 -17 -40 degrees QTc Int : 452 ms Sinus rhythm. with occasional premature ventricular complexes. Septal infarct , age undetermined Abnormal ECG When compared with ECG of 21-APR-2018 19:14, premature supraventricular complexes. are no longer present ST no longer depressed in Inferior leads T wave inversion less evident in Inferior leads Unconfirmed Result
[2018-08-13] MEDS: SPIRIVA INH SCH (08:39)
[2018-08-13] MEDS: NS NEB INH SCH ×2 (08:40→17:19)
[2018-08-13] MEDS: RANEXA PO SCH ×2 (08:54→23:11)
[2018-08-13] MEDS: LANOXIN PO SCH (08:54)
[2018-08-13] MEDS: KLOR-CON PO SCH (08:54)
[2018-08-13] MEDS: ALDACTONE PO SCH (08:54)
[2018-08-13] MEDS: ELIQUIS PO SCH ×2 (08:55→23:11)
[2018-08-13] MEDS: NORVASC PO SCH (16:21)
[2018-08-13] MEDS: LASIX IV SCH ×2 (16:21→22:57)
[2018-08-13] MEDS: COZAAR PO SCH (16:22)
[2018-08-13] MEDS: LOPRESSOR PO SCH ×2 (16:22→22:58)
[2018-08-13] MEDS: ZITHROMAX 500 MG/NS 500 MG/250 ML IVPB IV SCH (17:37)
[2018-08-13] MEDS: LIPITOR PO SCH (23:11)
[2018-08-13] MEDS ORDERED: CALMOSEPTINE OINTMENT TOP PRN (23:28)
[2018-08-14] MEDS: ROBITUSSIN-DM PO SCH ×6 (02:47→23:20)
[2018-08-14] MEDS: XOPENEX NEB INH SCH ×4 (03:17→21:50)
[2018-08-14 06:39] LABS: AGAP 10; BUN 18 mg/dL (8-22); CALCIUM 8.9 mg/dL (8.8-10.2); CHLORIDE 103 mmol/L (98-107); COSMO 279; CREATININE 0.9 mg/dL (0.7-1.2); ESTIMATED GFR > 60; GLUCOSE 99 mg/dL (70-104); POTASSIUM 4.6 mmol/L (3.5-5.1); SODIUM 139 mmol/L (136-145); TCO2 26 mmol/L (25-35)
--- NOTE | 2018-08-14 07:51 | PROGRESS NOTE ---
DATE: 08/13/2018 SUBJECTIVE: Interval history was reviewed. An 87-year-old male repeatedly seen in the emergency room for the last 1 year with underlying COPD and CHF. I did review the reports by Dr. Porter on 08/11/2018. The patient is weak and, he was told he has pneumonia. No other complaints. He has been eating well. PAST MEDICAL HISTORY: Reviewed. PAST SURGICAL HISTORY: Reviewed. MEDICATIONS: Reviewed. ALLERGIES: Not known. EXAMINATION: Temperature 97 degrees, pulse 74, and blood pressure is 115/57.HEENT: Within normal limits. Neck: Supple. Chest: No signs of consolidation. Heart: Sounds are regular. Abdomen: Belly is soft and nontender. No peripheral edema. INVESTIGATIONS: CBC: White cell count 9.4, hematocrit 39, and platelets 252,000. SMA 7 is normal. ProBNP was high. Chest x-ray on 08/13/2018 with left upper lobe pneumonia. ASSESSMENT AND PLAN: 1. Left upper lobe pneumonia. Currently, the patient has been on Zithromax and bronchodilators. 2. Ischemic cardiomyopathy. Continue on Lopressor 50 p.o. b.i.d. and Ranexa 400 p.o. b.i.d., and Aldactone 25 daily. 3. COPD on bronchodilators and Spiriva. 4. Hypertension. Norvasc 10 mg daily and Cozaar 50 daily. 5. Hyperlipidemia. Lipitor 20 daily. 6. PAF currently in sinus on Lanoxin and Eliquis. 7. Deconditioning: Discussed the living will and will follow up. LEVEL OF DOCUMENTATION: 35 minutes. cc: MD Josue Sandra MD
--- NOTE | 2018-08-14 09:07 | PROGRESS NOTE ---
DATE: 08/14/2018 SUBJECTIVE: The patient is doing very well not in respiratory distress. He is in sleeping. He denies of any productive cough, fever, shortness of breath and wheezing. OBJECTIVE: Vital signs: Temperature 97 degrees, pulse 74, blood pressure is 98/51, and 97% on 2 L. HEENT: Within normal limits. Neck: Supple. No lymphadenopathy. Chest: Bilateral air entry. Heart: Sounds are regular. Abdomen: Belly is soft and nontender. No obvious deficits. INVESTIGATIONS: SMA 7 is normal. Blood cultures were negative. ASSESSMENT AND PLAN: 1. Left upper lobe pneumonia with COPD. Continue IV Zithromax. 2. COPD on bronchodilators, Xopenex and Spiriva. 3. Ischemic cardiomyopathy stable. Continue on metoprolol. 4. PAF on digitalis and Eliquis. 5. Hypertension. Norvasc and Cozaar. Will decrease the Lasix once daily, and repeat the chest x- ray and blood workup in the morning also. 6. Consider palliative consult today because of the deconditioning with underlying comorbid conditions, slowly declining performance status as well as recurrent hospitalization. LEVEL OF DOCUMENTATION: 25 minutes. cc: MD Josue Sandra MD
[2018-08-14] MEDS: LANOXIN PO SCH (09:28)
[2018-08-14] MEDS: RANEXA PO SCH ×2 (09:28→23:21)
[2018-08-14] MEDS: KLOR-CON PO SCH (09:28)
[2018-08-14] MEDS: ELIQUIS PO SCH ×2 (09:30→23:21)
[2018-08-14] MEDS: SPIRIVA INH SCH (10:05)
[2018-08-14] MEDS: TYLENOL PO PRN (12:35)
[2018-08-14] MEDS: ALDACTONE PO SCH (13:08)
[2018-08-14] MEDS: NORVASC PO SCH (13:08)
[2018-08-14] MEDS: LOPRESSOR PO SCH ×2 (13:09→23:22)
[2018-08-14] MEDS: COZAAR PO SCH (13:09)
[2018-08-14] MEDS: LASIX IV SCH (13:09)
[2018-08-14] MEDS: ZITHROMAX 500 MG/NS 500 MG/250 ML IVPB IV SCH (17:13)
[2018-08-14] MEDS: LIPITOR PO SCH (23:21)
[2018-08-15] MEDS: XOPENEX NEB INH SCH ×4 (03:48→21:54)
[2018-08-15] MEDS: ROBITUSSIN-DM PO SCH ×6 (05:20→21:53)
[2018-08-15 07:06] LABS: BASO# 0.06 X1000 (0.0-0.2); BASO% 0.9 % (0.0-0.8); EOS% 15.7 % (0.0-10.0); HEMATOCRIT 35.4 % (42.0-52.0); IMM GRAN# 0.02 X1000 (0.0-0.04); IMM GRAN% 0.3 % (0.0-0.5); LYMPH# 1.41 X1000 (1.2-3.4); LYMPH% 22.2 % (20.5-51.1); MCHC 31.1 g/dL (33-37); MONO# 1.28 X1000 (0.11-0.59); MONO% 20.2 % (1.7-9.3); MPV 10.7 FL (7.4-10.4); NEUT# 2.58 X1000 (1.4-6.5); NEUT% 40.7 % (42.2-75.2); PLT 250 X1000 (130-400); RBC 4.07 XMIL (4.7-6.1); RDW 15.5 % (11.5-14.5); WBC 6.35 X1000 (4.8-10.8)
[2018-08-15 07:32] LABS: AGAP 11; ALB/GLOB RATIO 1.1; ALKALINE PHOSPHATASE 76 U/L (32-122); BUN 24 mg/dL (8-22); CALCIUM 9.5 mg/dL (8.8-10.2); CHLORIDE 100 mmol/L (98-107); COSMO 276; ESTIMATED GFR > 60; GLUCOSE 128 mg/dL (70-104); GOT 19 U/L (10-34); GPT 7 U/L (10-44); SODIUM 135 mmol/L (136-145); TCO2 24 mmol/L (25-35); TOTAL BILIRUBIN 0.77 mg/dL (0.20-1.00); TOTAL PROTEIN 5.7 g/dL (6.3-8.3)
--- NOTE | 2018-08-15 07:41 | Diag Imaging Result Doc PS360 ---
CHEST-2 VIEWS - 08/15/2018 INDICATION: hypoxia COMPARISON: 08/13/2018 FINDINGS: The lungs are normally expanded and clear. Heart size and mediastinal contours are normal. No pneumothorax or pleural effusion. Stable left upper lobe infiltrate. No new infiltrates. No pneumothorax or pleural effusion. Heart size and pulmonary vascularity is normal. IMPRESSION: Left upper lobe infiltrate/pneumonia. No change from prior. Electronically signed by Calvin Grimm 08/15/2018 7:39 AM
[2018-08-15 07:42] LABS: EOS 4 % (1-10); LYMPHS 18 % (21-51); MONO 16 % (1-9); SEGS 62 % (42-75)
[2018-08-15] MEDS ORDERED: MIRALAX PO ONE (07:56)
[2018-08-15] MEDS: LANOXIN PO SCH (09:32)
[2018-08-15] MEDS: ELIQUIS PO SCH ×2 (09:32→21:54)
[2018-08-15] MEDS: NORVASC PO SCH (09:32)
[2018-08-15] MEDS: KLOR-CON PO SCH (09:32)
[2018-08-15] MEDS: RANEXA PO SCH ×2 (09:32→21:54)
[2018-08-15] MEDS: SPIRIVA INH SCH (09:42)
[2018-08-15] MEDS: LASIX IV SCH (12:50)
[2018-08-15] MEDS: LOPRESSOR PO SCH ×2 (12:50→21:55)
[2018-08-15] MEDS: COZAAR PO SCH (12:50)
[2018-08-15] MEDS: ALDACTONE PO SCH (12:51)
[2018-08-15] MEDS: ZITHROMAX 500 MG/NS 500 MG/250 ML IVPB IV SCH (17:35)
[2018-08-15] MEDS: TYLENOL PO PRN (18:49)
[2018-08-15 18:57] LABS: URINE SOURCE CATH
[2018-08-15 19:01] LABS: BILIRUBIN URINE NEGATIVE (NEGATIVE); BLOOD URINE NEGATIVE (NEGATIVE); COLOR YELLOW; GLUCOSE URINE NEGATIVE (NEGATIVE); KETONE URINE NEGATIVE (NEGATIVE); LEUKOCYTES URINE NEGATIVE (NEGATIVE); NITRITE URINE NEGATIVE (NEGATIVE); PROTEIN URINE NEGATIVE (NEGATIVE); SP GRAVITY URINE 1.015; TURBIDITY URINE CLEAR (CLEAR); UROBILINOGEN URINE 3 mg/dL (NORMAL)
[2018-08-15 19:02] LABS: UR EPITHELIAL CELLS <10 /HPF (<10); URINE BACTERIA NEGATIVE /HPF; URINE RBC <10 /HPF (<10); URINE WBC <10 /HPF (<10)
--- NOTE | 2018-08-15 20:02 | PROGRESS NOTE ---
DATE: 08/15/2018 SUBJECTIVE: The patient is out of the bed. No shortness of breath. No complaints. EXAMINATION: Temp is 97, pulse 84, blood pressure is stable.HEENT: Within normal limits. Chest: Clear. Heart: Heart sounds are regular. Abdomen: Belly is soft, nontender. INVESTIGATIONS: Chest x-ray no significant change. Left upper lobe pneumonia. LABORATORIES: CBC: White cell count 6.3, hematocrit 35, platelet 250,000. Sodium 135, potassium 5, chloride 100, BUN 24, creatinine 1.0, glucose 128. Urinalysis is clear. Blood cultures were negative. ASSESSMENT AND PLAN: 1. Left upper lobe pneumonia. 2. COPD. 3. Ischemic cardiomyopathy. 4. Deconditioning. 5. Palliative Care consult, living will, DNR addressed. Continue the IV antibiotics with Zithromax, is not responding. We will add Zosyn and will follow up. LEVEL OF DOCUMENTATION: 25 minutes. cc: MD Josue Sandra MD
[2018-08-15] MEDS: ZOSYN 3.375 GM in NS 50 ML IV SCH (21:53)
[2018-08-15] MEDS: LIPITOR PO SCH (21:54)
[2018-08-15] MEDS ORDERED: NS 500 ML ONE (22:03)
[2018-08-16] MEDS: ROBITUSSIN-DM PO SCH ×6 (03:23→21:30)
[2018-08-16] MEDS: XOPENEX NEB INH SCH ×4 (03:38→21:20)
[2018-08-16] MEDS: ZOSYN 3.375 GM in NS 50 ML IV SCH ×3 (04:48→18:48)
[2018-08-16] MEDS: ULTRACET 37.5MG/325MG PO PRN ×2 (08:15→18:40)
[2018-08-16] MEDS: SPIRIVA INH SCH (08:39)
[2018-08-16] MEDS: NS NEB INH SCH ×2 (08:40→16:58)
[2018-08-16] MEDS: LOPRESSOR PO SCH ×3 (11:58→21:29)
[2018-08-16] MEDS: ELIQUIS PO SCH ×2 (12:00→21:29)
[2018-08-16] MEDS: NORVASC PO SCH (12:00)
[2018-08-16] MEDS: LASIX IV SCH (12:01)
[2018-08-16] MEDS: ALDACTONE PO SCH (12:01)
[2018-08-16] MEDS: RANEXA PO SCH ×2 (12:02→21:30)
[2018-08-16] MEDS: KLOR-CON PO SCH (12:03)
[2018-08-16] MEDS: COZAAR PO SCH (12:03)
[2018-08-16] MEDS: LANOXIN PO SCH (12:04)
[2018-08-16] MEDS: ZITHROMAX 500 MG/NS 500 MG/250 ML IVPB IV SCH (18:49)
[2018-08-16] MEDS: LIPITOR PO SCH (21:29)
--- NOTE | 2018-08-16 21:57 | PROGRESS NOTE ---
DATE: 08/16/2018 SUBJECTIVE: Last night, the patient was not able to pee, more in pain. Bladder scan 1800. A Pressley was placed. Chest x-ray was not improving. Second antibiotic was ordered. DNR paper was ordered. Palliative Care consult was appreciated. Family is agreeable. OBJECTIVE: Vital Signs: Temperature is 98 degrees, pulse 62, blood pressure 117/63, room air 96%, slowly dwindling. Chest: Bilateral air entry. No signs of pneumonitis. Heart: Sounds are regular. Abdomen: Belly is soft, nontender. Pressley was placed. INVESTIGATIONS: None reported. ASSESSMENT AND PLAN: 1. Left upper lobe pneumonia is not improving. Started on Zosyn and the PleurX. 2. Ischemic cardiomyopathy, stable. 3. Bladder retention, due to benign prostatic hypertrophy, on Pressley. Slowly bladder voiding trial. 4. Ischemic cardiomyopathy, stable. 5. Paroxysmal atrial fibrillation, stable. 6. Deconditioning. 7. Living Will, Do Not Resuscitate. Palliative Care consult was appreciated. Continue present treatment. LEVEL OF DOCUMENTATION: 25 minutes. cc: MD Josue Sandra MD
[2018-08-17] MEDS: ZOSYN 3.375 GM in NS 50 ML IV SCH ×4 (00:40→22:04)
[2018-08-17] MEDS: ROBITUSSIN-DM PO SCH ×6 (00:40→22:04)
[2018-08-17] MEDS: XOPENEX NEB INH SCH ×4 (03:29→23:41)
[2018-08-17] MEDS: SPIRIVA INH SCH (08:24)
[2018-08-17] MEDS: ELIQUIS PO SCH ×2 (08:25→22:03)
[2018-08-17] MEDS: NS NEB INH SCH ×2 (08:25→15:27)
[2018-08-17] MEDS: LASIX IV SCH (09:52)
[2018-08-17] MEDS: NORVASC PO SCH (09:53)
[2018-08-17] MEDS: LOPRESSOR PO SCH ×2 (09:53→22:03)
[2018-08-17] MEDS: ALDACTONE PO SCH (09:55)
[2018-08-17] MEDS: RANEXA PO SCH ×2 (09:55→22:03)
[2018-08-17] MEDS: KLOR-CON PO SCH (09:55)
[2018-08-17] MEDS: COZAAR PO SCH (09:55)
[2018-08-17] MEDS: LANOXIN PO SCH (09:58)
--- NOTE | 2018-08-17 20:27 | PROGRESS NOTE ---
DATE: 08/17/2018 SUBJECTIVE: The patient is doing better, and palliative care consult was obtained. Pressley was taken out. He is emptying the bladder. OBJECTIVE: Vital signs: Temperature is 97 degrees. Vitals are stable. Physical exam: No signs of pneumonitis. Labs not obtained. ASSESSMENT AND PLAN: 1. Left upper lobe pneumonia. We will repeat the chest x-ray in the morning. He has been on IV Zosyn and Zithromax. 2. Ischemic cardiomyopathy, stable. 3. Living Will DNR. 4. Bladder outlet obstruction is improving, and if he is stable tomorrow, we will discharge and follow up with outpatient hospice care. cc: MD Josue Sandra MD
[2018-08-17] MEDS: LIPITOR PO SCH (22:02)
[2018-08-17] MEDS: TYLENOL PO PRN (22:04)
[2018-08-17] MEDS: ZITHROMAX 500 MG/NS 500 MG/250 ML IVPB IV SCH (23:05)
[2018-08-18] MEDS: ROBITUSSIN-DM PO SCH ×6 (00:59→20:05)
[2018-08-18] MEDS: ZITHROMAX 500 MG/NS 500 MG/250 ML IVPB IV SCH (00:59)
[2018-08-18] MEDS: ZOSYN 3.375 GM in NS 50 ML IV SCH ×4 (02:14→23:09)
[2018-08-18] MEDS: XOPENEX NEB INH SCH ×4 (04:04→21:00)
[2018-08-18] MEDS: NORVASC PO SCH ×2 (07:30→08:05)
[2018-08-18] MEDS: LANOXIN PO SCH ×2 (07:30→08:05)
[2018-08-18] MEDS: SPIRIVA INH SCH (08:27)
[2018-08-18] MEDS: NS NEB INH SCH (08:28)
--- NOTE | 2018-08-18 09:19 | Diag Imaging Result Doc PS360 ---
EXAM: CHEST-2 VIEWS HISTORY: hypoxia TECHNIQUE: Chest two views COMPARISON: 08/15/2018 FINDINGS: The lungs are hyperexpanded the heart is not enlarged. The vessels are not distended. There are left upper lobe infiltrates which persist. No pleural effusions. IMPRESSION: Persistent left upper lobe pneumonia. Electronically signed by Michael Barrera 08/18/2018 9:17 AM
[2018-08-18] MEDS: KLOR-CON PO SCH (10:42)
[2018-08-18] MEDS: ALDACTONE PO SCH (11:17)
[2018-08-18] MEDS: RANEXA PO SCH ×2 (11:17→23:12)
[2018-08-18] MEDS: LASIX IV SCH (11:18)
[2018-08-18] MEDS: ELIQUIS PO SCH ×2 (11:19→23:13)
[2018-08-18] MEDS: COZAAR PO SCH (11:19)
[2018-08-18] MEDS: LOPRESSOR PO SCH ×2 (11:32→23:13)
[2018-08-18] MEDS: MIRALAX PO SCH (13:50)
--- NOTE | 2018-08-18 15:46 | PROGRESS NOTE ---
DATE: 08/18/2018 SUBJECTIVE: The patient is better. Pressley was discontinued. Chest x-ray: Persistent left upper lobe pneumonia, and he is having some productive cough. OBJECTIVE: Vital Signs: On exam, temperature is 98 degrees, pulse 101, blood pressure is 118/56. HEENT: Exam within normal limits. Neck: Supple. No lymphadenopathy. Chest: Bilateral air entry. Heart: Sounds are regular. Abdomen: Belly is soft, nontender. The patient has been in diapers. Neurological: No neurological deficits. Chest x-ray: Persistent left upper lobe infiltrate. ASSESSMENT AND PLAN: 1. Left upper lobe pneumonia. Not getting any better. Continue on intravenous Zosyn and Zithromax and bronchodilators. We will hold the discharge. 2. Paroxysmal atrial fibrillation. He is not taking a lot of medicines. At least he is on Eliquis, Lanoxin. 3. Hyperlipidemia on Lipitor. 4. Ischemic cardiomyopathy, stable. We will reconcile his home medicines as per that Living Will/do not resuscitate. We will hold the discharge. The patient is ready for palliative care. 5. History of cervical spine spondylosis. We will use chronic pain medicine as needed. LEVEL OF DOCUMENTATION: 25 minutes. cc: MD Josue Sandra MD
[2018-08-18] MEDS: TYLENOL PO PRN (20:04)
[2018-08-18] MEDS: LIPITOR PO SCH (23:13)
[2018-08-19] MEDS: ZITHROMAX 500 MG/NS 500 MG/250 ML IVPB IV SCH (01:47)
[2018-08-19] MEDS: ZOSYN 3.375 GM in NS 50 ML IV SCH ×4 (03:59→21:31)
[2018-08-19] MEDS: XOPENEX NEB INH SCH ×4 (05:09→20:15)
[2018-08-19] MEDS: ROBITUSSIN-DM PO SCH ×5 (06:14→21:31)
[2018-08-19] MEDS: NS NEB INH SCH ×2 (08:10→16:20)
[2018-08-19] MEDS: SPIRIVA INH SCH (08:15)
[2018-08-19] MEDS: ALDACTONE PO SCH (08:27)
[2018-08-19] MEDS: NORVASC PO SCH (08:27)
[2018-08-19] MEDS: COZAAR PO SCH (08:28)
[2018-08-19] MEDS: RANEXA PO SCH ×2 (09:33→21:32)
[2018-08-19] MEDS: ELIQUIS PO SCH ×2 (09:33→21:31)
[2018-08-19] MEDS: KLOR-CON PO SCH (09:35)
[2018-08-19] MEDS: LASIX IV SCH (09:35)
[2018-08-19] MEDS: LANOXIN PO SCH (09:40)
[2018-08-19] MEDS: MIRALAX PO SCH (09:42)
[2018-08-19] MEDS: LOPRESSOR PO SCH ×2 (09:43→21:32)
[2018-08-19] MEDS ORDERED: ZOSYN ONE (15:48)
[2018-08-19] MEDS: MYCOSTATIN SUSP PO SCH ×3 (15:50→21:31)
--- NOTE | 2018-08-19 17:28 | PROGRESS NOTE ---
DATE: 08/19/2018 SUBJECTIVE: The patient is at bedside eating with assistance. No complaints. EXAMINATION: Vital signs: Temperature is 98 degrees, pulse 66, blood pressure is stable. HEENT: Within normal limits. Neck: Supple. Chest: No signs of pneumonitis. ASSESSMENT AND PLAN: 1. Left upper lobe aspiration pneumonia. Continue on IV Zithromax and Zosyn. 2. Repeat the chest x-ray. 3. DNR. Continue present treatment. Once he is improved, we will discharge with outpatient home hospice care. LEVEL OF DOCUMENTATION: 15 minutes. cc: MD Josue Sandra MD
[2018-08-19] MEDS: ULTRACET 37.5MG/325MG PO PRN (18:17)
[2018-08-19] MEDS: LIPITOR PO SCH (21:31)
[2018-08-20] MEDS: ZITHROMAX 500 MG/NS 500 MG/250 ML IVPB IV SCH (01:58)
[2018-08-20] MEDS: ROBITUSSIN-DM PO SCH ×6 (02:01→23:20)
[2018-08-20] MEDS: XOPENEX NEB INH SCH ×4 (03:20→21:36)
[2018-08-20] MEDS: ZOSYN 3.375 GM in NS 50 ML IV SCH ×4 (04:43→23:20)
[2018-08-20] MEDS: SPIRIVA INH SCH (07:52)
[2018-08-20] MEDS: LANOXIN PO SCH (08:49)
[2018-08-20] MEDS: LOPRESSOR PO SCH ×2 (08:49→23:21)
[2018-08-20] MEDS: KLOR-CON PO SCH (08:50)
[2018-08-20] MEDS: COZAAR PO SCH (08:51)
[2018-08-20] MEDS: ALDACTONE PO SCH (08:51)
[2018-08-20] MEDS: MIRALAX PO SCH (08:51)
[2018-08-20] MEDS: LASIX IV SCH (08:51)
[2018-08-20] MEDS: MYCOSTATIN SUSP PO SCH ×4 (08:59→23:20)
[2018-08-20] MEDS: NORVASC PO SCH (09:00)
[2018-08-20] MEDS: RANEXA PO SCH ×2 (09:00→23:20)
[2018-08-20] MEDS: ELIQUIS PO SCH ×2 (09:01→23:20)
--- NOTE | 2018-08-20 10:09 | Diag Imaging Result Doc PS360 ---
CHEST-2 VIEWS - 08/20/2018 INDICATION: hypoxia COMPARISON: 08/18/2018 FINDINGS: Stable dense focal infiltrate in the left lung apex. Stable hazy infiltrate or scarring in the right lung base, mostly the right middle lobe. No new abnormalities. Heart size is normal. No pneumothorax or pleural effusion. IMPRESSION: No change from prior. Electronically signed by Calvin Grimm 08/20/2018 10:07 AM
--- NOTE | 2018-08-20 21:34 | Diag Imaging Result Doc PS360 ---
CT THORAX W/CONTRAST - 08/20/2018 INDICATION: pneumonia COMPARISON: 01/29/2018 FINDINGS: There is no adenopathy. There are focal infiltrates in the left upper lobe and right lung. The right lung infiltrate involves both the posterior segment of the right upper lobe and the superior segment of the right lower lobe, effectively crossing the major fissure. There is also some amorphous heterogeneous material in the right mainstem bronchus. There is moderately advanced COPD. Upper abdominal images are grossly normal. Stable compression fracture at the lower thoracic spine. IMPRESSION: 1. Dense bilateral infiltrates most compatible with pneumonia. Follow-up until clear. 2. Aspirated material or mucous in the right mainstem bronchus. 3. Advanced COPD. This exam was performed using automated exposure control, adjustment of mA or kV according to patient size, and/or use of iterative reconstruction technique Electronically signed by Calvin Grimm 08/20/2018 9:31 PM
[2018-08-20] MEDS: LIPITOR PO SCH (23:20)
[2018-08-21] MEDS: ZITHROMAX 500 MG/NS 500 MG/250 ML IVPB IV SCH (00:48)
[2018-08-21] MEDS: ROBITUSSIN-DM PO SCH ×2 (00:48→10:37)
[2018-08-21] MEDS: XOPENEX NEB INH SCH ×2 (03:27→08:04)
[2018-08-21] MEDS: ZOSYN 3.375 GM in NS 50 ML IV SCH ×2 (05:04→10:37)
[2018-08-21] MEDS: SPIRIVA INH SCH (08:04)
--- NOTE | 2018-08-21 09:49 | Diag Imaging Result Doc PS360 ---
BA SWALLOW W/VIDEO SPEECH THER - 08/21/2018 INDICATION: Aspiration TECHNIQUE: Total fluoroscopy time was 26 seconds. 149 images were obtained. COMPARISON: None FINDINGS: There is no aspiration or penetration. Normal swallowing mechanism. The esophagus empties normally. Gastroesophageal junction is normally located. There are prominent degenerative osteophytes anteriorly at the lower cervical spine which impinge slightly on the posterior wall of the esophagus, but cause no delay in clearance. IMPRESSION: No aspiration or penetration. No significant dysphagia. Electronically signed by Calvin Grimm 08/21/2018 9:47 AM
[2018-08-21] MEDS: NORVASC PO SCH (10:33)
[2018-08-21] MEDS: LANOXIN PO SCH (10:33)
[2018-08-21] MEDS: KLOR-CON PO SCH (10:34)
[2018-08-21] MEDS: ALDACTONE PO SCH (10:34)
[2018-08-21] MEDS: ELIQUIS PO SCH (10:34)
[2018-08-21] MEDS: COZAAR PO SCH (10:35)
[2018-08-21] MEDS: LOPRESSOR PO SCH (10:35)
[2018-08-21] MEDS: RANEXA PO SCH (10:35)
[2018-08-21] MEDS: LASIX IV SCH (10:36)
[2018-08-21] MEDS: MIRALAX PO SCH (10:36)
[2018-08-21] MEDS: MYCOSTATIN SUSP PO SCH (10:37)
[2018-08-21 11:27] VITALS: BP 132/46
--- NOTE | 2018-08-22 16:41 | PROGRESS NOTE ---
DATE: 08/20/2018 SUBJECTIVE: The patient is out of the bed and followup x-ray, no improvement of left upper lobe pneumonia. EXAMINATION: Temperature is 98 degrees. Vitals are stable. HEENT: Examination within normal limits. Chest: Bilateral air entry. Heart sounds are regular. INVESTIGATIONS: Chest x-ray, left upper lobe pneumonia. ASSESSMENT AND PLAN: Persistent left upper lobe pneumonia. Consider CT of the chest. Based on that, further recommendations will be followed. Continue intravenous antibiotics and present treatment. LEVEL OF DOCUMENTATION: 25 minutes. cc: MD Josue Sandra MD
--- NOTE | 2018-08-26 07:35 | DISCHARGE SUMMARY ---
ADMISSION DATE: 08/11/2018 DISCHARGE DATE: 08/21/2018 DISCHARGING DIAGNOSIS: Altered mental status due to left upper lobe aspiration pneumonia. SECONDARY DIAGNOSES: 1. Ischemic cardiomyopathy, ejection fraction 30%. 2. Chronic obstructive pulmonary disease. 3. Hypertension. 4. Hyperlipidemia. 5. Acid reflux disease. 6. PAF. 7. 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 BRIEF HISTORY: Please see the H and P that was done by Dr. Porter. In brief, he is an 87-year- old male with above problems, admitted several times for the last 1 year at different institutions, which includes [facility], [facility], [facility], [facility], for recurrent problems. At this time, he was admitted for left upper lobe pneumonia. Patient was given IV Zosyn and Zithromax. He failed to improve. He also had bladder retention that has been resolved. Despite aggressive antibiotics, continues to have infiltrates in the left upper lobe. Barium swallow with video scope revealed no evidence of aspiration. Palliative care consult was obtained and he agreed for living will DNR. Finally, family decided to take him home with hospice care. LABORATORY DATA: CBC: White cell count 6.3, hematocrit 35, platelets 250,000. Sodium 135, potassium 5, chloride 100, BUN 24, creatinine 1.0, glucose 128. LFTs were normal. Urinalysis is clear. Blood cultures were negative. CT of the chest showed dense bilateral infiltrates most compatible with pneumonia, aspirated material or mucus in the right mainstem bronchus and COPD. DISPOSITION: At the request of the family, patient has been discharged with hospice care with the following medications: 1. Potassium 10 mEq daily. 2. Metoprolol 50 p.o. b.i.d. 3. Spiriva 1 puff inhalation daily. 4. Eliquis 2.5 p.o. b.i.d. 5. Lasix 40 daily. 6. Lipitor 20 daily. 7. Amlodipine 10 daily. 8. Losartan 50 daily. 9. Lanoxin 125 mcg daily. 10. Discontinue Ranexa. 11. Ultracet 1 tablet q.6 as needed. 12. Aldactone 25 daily. 13. Levaquin 500 daily for 10 days. Continue palliative services as an outpatient. cc: MD Josue Sandra MD
== END 2018-08-21 12:46 | disposition hospice, home (50) | DRG 177 ==
LOC: ED 07:17 → 4N 12:18
PROVIDERS: ADMIT Family Medicine; ATTEND Internal Medicine
CPT/HCPCS: 71010; 71020; 71045; 71046; 71260; 74230; 80048; 80053; 81001; 83880; 84484; 85025; 87040; 92611; 93005; 94640; 94761; 94799; 96365; 96375; 97110; 97116; 97162; 97530; 99285; A9270; J0456; J0696; J1940; J2543; J7040; Q9967